=== PATIENT | male | born 1965 | race Caucasian/White ===

== ENCOUNTER → 2020-04-10 12:38 | Outpatient (BNVA) | payer OTHER, SELFPAY | PROVIDERS: PCP Internal Medicine; Referring Provider Internal Medicine; Visit Provider Internal Medicine Cardiovascular Disease | DX: I25.10 Atherosclerotic heart disease of native coronary artery without angina pectoris (principal); I71.2 Thoracic aortic aneurysm, without rupture; I10 Essential (primary) hypertension; E11.9 Type 2 diabetes mellitus without complications; Q23.1 Congenital insufficiency of aortic valve; Z79.4 Long term (current) use of insulin; Z79.899 Other long term (current) drug therapy | CPT/HCPCS: 93005 ==

== ENCOUNTER → 2020-05-08 13:05 | Outpatient (REF) | payer OTHER, SELFPAY ==
--- NOTE | 2020-05-08 13:09 | CA_ITS ---
Transthoracic Echocardiogram Patient (Last, First, Middle): David Joshi A Gender: Male Date of : 1965 Age: 54 Procedure Date: 05/08/2020 Procedure Type: Transthoracic Echocardiogram Location: OP Height: 170.18 cm Weight: 72.58 kg BSA: 1.84 m2 Heart Rate: bpm BP: 120 / 62 mmHg Data Administrator: Referring MD: Juan Yen MD Symptoms: Q23.1 AI I71.2 AO. ANEURYSM WITHOUT RUPTURE Study Quality: Good ECG Rhythm: Sinus Conclusions: - The left ventricular systolic function is normal. The visually estimated ejection fraction is between 65-70%. - There is a bicuspid aortic valve. There is no aortic valve stenosis. There is no aortic valve regurgitation. - There is moderate dilatation of the ascending aorta measuring 4.50 cm. Findings Left Ventricle Normal left ventricular cavity size. There is normal left ventricular wall thickness. The left ventricular systolic function is normal. The visually estimated ejection fraction is between 65-70%. There is no evidence of regional wall motion abnormalities. Diastolic function is normal for age. Right Ventricle Normal right ventricular cavity size and systolic function. Atria The left atrium is normal in size. The right atrium is normal in size. Aortic Valve There is a bicuspid aortic valve. There is no aortic valve stenosis. There is no aortic valve regurgitation. Mitral Valve The mitral valve appears normal. There is trace mitral valve regurgitation. There is no mitral valve stenosis. Pulmonic Valve The pulmonic valve was not well visualized. Tricuspid Valve Normal tricuspid valve structure. There is trace tricuspid valve regurgitation. The pulmonary artery systolic pressure is normal. Great Vessels The aortic arch is normal in size. There is moderate dilatation of the ascending aorta measuring 4.50 cm. Venous The inferior vena cava is normal in size and collapses greater than 50% with inspiration. Pericardium/Pleural There is no evidence of pericardial effusion. Prior Study Comparison Changes noted compared to prior study dated: 12/25/2017. Increase in ascending aortic size. Measurements 2D Linear Measurements RVIDd: 3.01 RVIDd Index: 1.64 IVSd: 0.78 0.6-0.9/0.6-1.0 cm LVIDd: 4.90 3.9-5.3/4.2-5.9 cm LVIDd Index: 2.66 2.4-3.2/2.2-3.1 cm/m2 LVIDs: 2.98 2.0-3.6 cm LVPWd: 0.75 0.7-1.1 cm Ao Root: 3.80 2.1-3.5 cm LA Diam: 3.20 2.7-3.8/3.0-4.0 cm LAIDs Index: 1.74 1.5-2.3 cm/m2 LV Mass: 153.74 67-162/88-224 g LV Mass Index: 83.55 43-95/49-115 g/m2 LVOT Diam: 2.10 3.0+(-)1.3 cm 2D Systolic Function EF 4C: 66.50 >55% EF 2C: 61.70 >55% EF BiP: 64.60 >55% Mitral Valve MV Pk E: 0.84 MV PK A: 0.91 MV Decel Time: 220.00 E/A: 0.90 E'Lateral: 7.72 E'Medial: 7.07 E/E' Med: 11.90 E/E' Lat: 10.90 Aortic Valve AoV Pk Sanjay: 1.79 AoV Mn Sanjay: 1.32 AoV VTI: 0.42 AoV Pk Grad: 13.00 Aov Mn Grad: 8.00 MELQUIADES Cont.VTI: 2.15 LVOT LVOT Pk Sanjay: 1.03 LVOT Mn Sanjay: 0.71 LVOT VTI: 0.26 LVOT Pk Grad: 4.00 LVOT Mn Grad: 2.00 LVOT Diam: 2.10 LVOT Area: 3.46 Diastolic Function MV Pk E: 0.84 MV Pk A: 0.91 E/A: 0.90 E'Medial: 7.07 E/E' Med: 11.90 E' Laterial: 7.72 E/E' Lat: 10.90 Tricuspid Valve TR Pk Sanjay: 2.12 TR Pk Grad: 18.00 RA Press: 3.00 RVSP: 21.00 Great Vessels Aorta Ao Root-2D: 3.80 2.0-3.7 cm Ao Asc: 4.50 2.1-3.4 cm Ao Arch: 3.00 Updated in Other Vendor System with Status of Final Matias Pearson MD electronically signed on 05/09/2020 4:28:26 PM with status of Final
== END ==
LOC: HO.CARD 13:05
PROVIDERS: Visit Provider Internal Medicine Cardiovascular Disease
DX: I25.10 Atherosclerotic heart disease of native coronary artery without angina pectoris (principal); I71.2 Thoracic aortic aneurysm, without rupture; Q23.1 Congenital insufficiency of aortic valve
CPT/HCPCS: 93306

== ENCOUNTER → 2021-04-10 10:14 | Outpatient (BNVA) | payer OTHER, SELFPAY | PROVIDERS: PCP Internal Medicine; Referring Provider Internal Medicine; Visit Provider Internal Medicine Cardiovascular Disease | DX: I25.10 Atherosclerotic heart disease of native coronary artery without angina pectoris (principal); I71.2 Thoracic aortic aneurysm, without rupture | CPT/HCPCS: 93005 ==

== ENCOUNTER → 2021-07-20 08:15 | Outpatient (REF) | payer OTHER, SELFPAY ==
--- NOTE | 2021-07-20 08:17 | CA_ITS ---
Transthoracic Echocardiogram Patient (Last, First, Middle): David Joshi A Gender: Male Date of : 1965 Age: 56 Procedure Date: 07/20/2021 Procedure Type: Transthoracic Echocardiogram Location: OP Height: 172.72 cm Weight: 74.84 kg BSA: 1.88 m2 Heart Rate: bpm BP: 128 / 82 mmHg Ob Nurse: BÁRBARA Referring MD: Juan Yen MD Symptoms: I71.2 - Thoracic aortic aneurysm, without rupture Study Quality: Good ECG Rhythm: Sinus Conclusions: - The left ventricular systolic function is normal. The calculated ejection fraction is 63% by biplane method. - There is a bicuspid aortic valve. There is no aortic valve stenosis. There is no aortic valve regurgitation. - There is mild dilatation of the sinuses of [place] measuring 3.80 cm and moderate dilatation of the ascending aorta measuring 4.50 cm. Findings Left Ventricle Normal left ventricular cavity size. There is normal left ventricular wall thickness. The left ventricular systolic function is normal. The calculated ejection fraction is 63% by biplane method. There is no evidence of regional wall motion abnormalities. Diastolic function is normal for age. Right Ventricle Normal right ventricular cavity size and systolic function. Atria Both atria are normal in size. Aortic Valve There is a bicuspid aortic valve. There is no aortic valve stenosis. There is no aortic valve regurgitation. Mitral Valve The mitral valve appears normal. There is trace mitral valve regurgitation. There is no mitral valve stenosis. Pulmonic Valve The pulmonic valve was not well visualized. Tricuspid Valve Normal tricuspid valve structure. There is trace tricuspid valve regurgitation. The pulmonary artery systolic pressure is normal. Great Vessels The aortic arch is normal in size. There is mild dilatation of the sinuses of [place] measuring 3.80 cm and moderate dilatation of the ascending aorta measuring 4.50 cm. Venous The inferior vena cava is normal in size and collapses greater than 50% with inspiration. Pericardium/Pleural There is no evidence of pericardial effusion. Prior Study Comparison No significant change compared to prior study dated: 05/08/2020. Measurements 2D Linear Measurements IVSd: 0.94 0.6-0.9/0.6-1.0 cm LVIDd: 4.36 3.9-5.3/4.2-5.9 cm LVIDd Index: 2.32 2.4-3.2/2.2-3.1 cm/m2 LVIDs: 2.39 2.0-3.6 cm LVPWd: 0.98 0.7-1.1 cm Ao Root: 3.80 2.1-3.5 cm LA Diam: 2.80 2.7-3.8/3.0-4.0 cm LAIDs Index: 1.49 1.5-2.3 cm/m2 LV Mass: 171.26 67-162/88-224 g LV Mass Index: 91.10 43-95/49-115 g/m2 LVOT Diam: 2.10 3.0+(-)1.3 cm 2D Systolic Function EF 4C: 63.70 >55% EF 2C: 66.60 >55% EF BiP: 63.20 >55% Mitral Valve MV Pk E: 0.88 MV PK A: 0.99 MV Decel Time: 243.00 E/A: 0.90 E'Lateral: 9.46 E'Medial: 7.72 E/E' Med: 11.40 E/E' Lat: 9.30 PHT: 71.00 MVA PHT: 3.10 Decel [place]: 3.61 Aortic Valve AoV Pk Sanjay: 1.94 AoV Mn Sanjay: 1.37 AoV VTI: 0.42 AoV Pk Grad: 15.00 Aov Mn Grad: 8.00 [place] Cont.VTI: 2.01 LVOT LVOT Pk Sanjay: 1.03 LVOT Mn Sanjay: 0.72 LVOT VTI: 0.24 LVOT Pk Grad: 4.00 LVOT Mn Grad: 2.00 LVOT Diam: 2.10 LVOT Area: 3.46 Diastolic Function MV Pk E: 0.88 MV Pk A: 0.99 E/A: 0.90 E'Medial: 7.72 E/E' Med: 11.40 E' Laterial: 9.46 E/E' Lat: 9.30 Right Ventricle TAPSE (mm): 26.90 TVS' Sanjay: 13.80 Tricuspid Valve TR Pk Sanjay: 1.74 TR Pk Grad: 12.00 RA Press: 3.00 RVSP: 15.00 Great Vessels Aorta Ao Root-2D: 3.80 2.0-3.7 cm Sinus of [place]: 3.80 2.0-3.5 cm Ao Asc: 4.50 2.1-3.4 cm Ao Arch: 3.00 Updated in Other Vendor System with Status of Final Matias Pearson MD electronically signed on 07/22/2021 1:22:47 PM with status of Final
== END ==
LOC: HO.CARD 08:15
PROVIDERS: PCP Internal Medicine; Visit Provider Internal Medicine Cardiovascular Disease
DX: I71.2 Thoracic aortic aneurysm, without rupture (principal)
CPT/HCPCS: 93306

== ENCOUNTER 2021-09-14 07:32 | Outpatient (REF) | payer OTHER, SELFPAY ==
[2021-09-14 07:51] LABS: MANUAL DIFF FLAG NO
[2021-09-14 08:08] LABS: Basophils Absolute Auto 0.1 X10*3/uL (0.0-0.2); Basophils Percent Auto 0.9 % (0-2); Eosinophils Absolute Auto 0.6 X10*3/uL (0.0-0.4); Eosinophils Percent Auto 7.9 % (0-4); Hemoglobin 15.5 g/dl (14.0-18.0); Imm Gran Abs Auto 0.04 X10*3/uL (0.00-0.03); Imm Gran Pct Auto 0.5 % (0.0-0.4); Lymphocytes Absolute Auto 1.8 X10*3/uL (1.2-4.9); Lymphocytes Percent Auto 22.8 % (20-40); Mean Corpuscular HGB Conc 33.7 g/dl (31.0-36.0); Mean Corpuscular Hemoglobin 29.6 pg (27.0-33.0); Mean Corpuscular Volume 87.8 fL (80.0-98.0); Mean Platelet Volume 10.2 fL (9.4-12.4); Monocytes Absolute Auto 0.6 X10*3/uL (0.1-1.2); Monocytes Percent Auto 7.8 % (2-11); Neutrophils Absolute Auto 4.6 x10*3/uL (2.0-8.3); Neutrophils Percent Auto 60.1 % (45-73); Platelet Count 267 X10*3/uL (160-400); Red Blood Count 5.24 X10*6/uL (4.60-5.80); Red Cell Distribution Width 12.5 % (11.0-16.0); White Blood Count 7.7 X10*3/uL (4.8-10.8)
[2021-09-14 08:21] LABS: Estimated Average Glucose 177 mg/dL; Hemoglobin A1c % 7.8 %
[2021-09-14 08:43] LABS: Alanine Aminotransferase 27 U/L (0-40); Albumin Level 4.1 g/dL (3.5-5.0); Alkaline Phosphatase 70 U/L (39-117); Anion Gap 12 (12-20); Aspartate Amino Transferase 24 U/L (5-37); Bilirubin Total 0.5 mg/dL (0.0-1.0); Blood Urea Nitrogen 21 mg/dL (9-16); Calcium 9.7 mg/dL (8.4-10.2); Carbon Dioxide 30 mmol/L (22-29); Chloride 102 mmol/L (96-108); Cholesterol 226 mg/dL; Estimated Glomerular Filt Rate 54; Glucose Fasting 207 mg/dL (60-99); HDL Cholesterol 53 mg/dL; LDL Cholesterol Calculated 141 mg/dl; Potassium 5.5 mmol/L (3.3-5.1); Sodium 138 mmol/L (135-145); Total Protein 6.5 g/dL (6.5-8.0); Triglycerides 160 mg/dL
[2021-09-14 08:59] LABS: TSH reflex Free T4 3.65 uIU/mL (0.32-4.0); Vitamin D 25-OH Total 25.9 ng/mL (>30)
[2021-09-14 09:31] LABS: Appearance Urine CLEAR; Color Urine YELLOW; Glucose Urine UA NEG (NEG); Leukocyte Esterase Urine NEG (NEG); Nitrite Urine NEG (NEG); Specific Gravity - Urine 1.025 (1.005-1.025); Urine Blood NEG (NEG); Urine Ketones NEG (NEG); Urine Protein NEG (NEG-TRACE)
[2021-09-14 09:36] LABS: Creatinine Urine 183.12 mg/dL; Microalbum/Creatinine Ratio Ur 4.3 ug/mg cr
[2021-09-17 14:26] LABS: CRP High Sensitivity 2.3 mg/L
== END 2021-09-14 07:33 | disposition home or self-care (01) ==
LOC: HO.LAB 07:32
PROVIDERS: Internal Medicine Cardiovascular Disease; PCP Internal Medicine; Visit Provider Internal Medicine
DX: E78.00 Pure hypercholesterolemia, unspecified (principal); E11.9 Type 2 diabetes mellitus without complications; I10 Essential (primary) hypertension; I25.10 Atherosclerotic heart disease of native coronary artery without angina pectoris; E78.5 Hyperlipidemia, unspecified; E55.9 Vitamin D deficiency, unspecified
CPT/HCPCS: 36415; 80053; 80061; 81003; 82043; 82306; 83036; 84443; 85025; 86141

== ENCOUNTER → 2022-04-16 09:49 | Outpatient (BNVA) | payer OTHER, SELFPAY | PROVIDERS: PCP Internal Medicine; Referring Provider Internal Medicine; Visit Provider Internal Medicine Cardiovascular Disease | DX: I71.20 Thoracic aortic aneurysm, without rupture, unspecified (principal); I25.10 Atherosclerotic heart disease of native coronary artery without angina pectoris | CPT/HCPCS: 93005 ==

== ENCOUNTER 2022-05-21 06:22 | Outpatient (REF) | payer OTHER, SELFPAY ==
[2022-05-21 07:34] LABS: Estimated Average Glucose 192 mg/dL; Hemoglobin A1c % 8.3 %
[2022-05-21 07:56] LABS: Cholesterol 200 mg/dL; HDL Cholesterol 67 mg/dL; LDL Cholesterol Calculated 108 mg/dl; Triglycerides 127 mg/dL
[2022-05-21 08:01] LABS: Alanine Aminotransferase 34 U/L (0-40); Albumin Level 4.2 g/dL (3.5-5.0); Alkaline Phosphatase 89 U/L (39-117); Anion Gap 15 (12-20); Aspartate Amino Transferase 24 U/L (5-37); Bilirubin Total 0.7 mg/dL (0.0-1.0); Blood Urea Nitrogen 23 mg/dL (9-16); Calcium 9.3 mg/dL (8.4-10.2); Carbon Dioxide 27 mmol/L (22-29); Chloride 101 mmol/L (96-108); Cholesterol 203 mg/dL; Estimated Glomerular Filt Rate 53; HDL Cholesterol 67 mg/dL; LDL Cholesterol Calculated 111 mg/dl; Potassium 5.2 mmol/L (3.3-5.1); Sodium 138 mmol/L (135-145); Total Protein 6.5 g/dL (6.5-8.0); Triglycerides 129 mg/dL
[2022-05-21 08:08] LABS: Glucose Fasting 419 mg/dL (60-99)
[2022-05-21 09:15] LABS: Appearance Urine Clear; Color Urine Yellow; Glucose Urine UA >=1000 mg/dL (Negative); Leukocyte Esterase Urine Negative (Negative); Nitrite Urine Negative (Negative); PH 5.5 (5.0-9.0); Specific Gravity - Urine >= 1.030 (1.005-1.025); UMIC TRIGGER UACC YES; Urine Blood Negative (Negative); Urine Ketones Negative (Negative); Urine Protein Negative (Neg-Trace)
[2022-05-21 09:22] LABS: Bacteria Urine None Seen (None Seen); Hyaline Casts Urine 0-2 /LPF (0-2); RBC Urine 0-2 /HPF (0-2); Squamous Epithelial Cell Urine 0-2 /HPF (0-2); WBC Urine 0-5 /HPF (0-5)
[2022-05-21 09:38] LABS: Creatinine Urine 87.42 mg/dL; Microalbumin Urine < 5.0 mg/L
== END 2022-05-21 06:23 | disposition home or self-care (01) ==
LOC: HO.LAB 06:22
PROVIDERS: Absent Provider Internal Medicine Cardiovascular Disease; PCP Internal Medicine; Visit Provider Internal Medicine
DX: E78.00 Pure hypercholesterolemia, unspecified (principal); E11.9 Type 2 diabetes mellitus without complications; E78.5 Hyperlipidemia, unspecified; E87.5 Hyperkalemia
CPT/HCPCS: 36415; 80048; 80053; 80061; 81001; 82043; 83036

== ENCOUNTER → 2022-05-22 12:41 | Outpatient (REF) | payer OTHER, SELFPAY ==
--- NOTE | 2022-05-22 12:58 | CA_ITS ---
Transthoracic Echocardiogram Patient (Last, First, Middle): David Joshi A Gender: Male Date of : 1965 Age: 56 Procedure Date: 05/22/2022 Procedure Type: Transthoracic Echocardiogram Location: OP Height: 172.72 cm Weight: 74.84 kg BSA: 1.88 m2 Heart Rate: bpm BP: 138 / 68 mmHg Certified Medical Assistant: TO Referring MD: Juan Yen MD Production Material Coordinator: Juan Yen MD Symptoms: I71.2 - Thoracic aortic aneurysm, without rupture Study Quality: Fair ECG Rhythm: Sinus Conclusions: - 1. Normal LV systolic function with grade 1 diastolic dysfunction 2. Bicuspid aortic valve without any secondary abnormality 3. Moderately dilated ascending aorta at 4.5 cm 4. Normal RV systolic pressure 5. No gross pericardial effusion Findings Left Ventricle Normal left ventricular size, thickness, and systolic function. The visually estimated ejection fraction is between 60-65%. Spectral Doppler is indicative of an impaired relaxation filling pattern. E/E prime ratio is <8, consistent with normal filling pressures. Evidence suggests grade I (mild) diastolic dysfunction. Right Ventricle Normal right ventricular cavity size and systolic function. Atria Both atria are normal in size. Interatrial shunt cannot be excluded. Aortic Valve There is a bicuspid aortic valve. There is mild thickening of the aortic valve. There is no aortic valve stenosis. There is no aortic valve regurgitation. Mitral Valve Normal mitral valve structure and function. There is trace mitral valve regurgitation. There is no mitral valve stenosis. Pulmonic Valve The pulmonic valve was not well visualized. Tricuspid Valve Likely normal tricuspid valve structure and function. There is trace tricuspid valve regurgitation. Normal right atrial pressure. There is no evidence of pulmonary hypertension. Great Vessels The pulmonary artery was not well visualized. There is moderate dilatation of the ascending aorta measuring 4.50 cm. Venous The inferior vena cava is normal in size and collapses greater than 50% with inspiration. Pericardium/Pleural There is no evidence of pericardial effusion. Prior Study Comparison No significant change compared to prior study dated: 07/20/2021. Measurements 2D Linear Measurements IVSd: 1.08 0.6-0.9/0.6-1.0 cm LVIDd: 4.16 3.9-5.3/4.2-5.9 cm LVIDd Index: 2.21 2.4-3.2/2.2-3.1 cm/m2 LVIDs: 2.48 2.0-3.6 cm LVPWd: 0.97 0.7-1.1 cm LA Diam: 2.70 2.7-3.8/3.0-4.0 cm LAIDs Index: 1.44 1.5-2.3 cm/m2 LV Mass: 173.71 67-162/88-224 g LV Mass Index: 92.40 43-95/49-115 g/m2 LVOT Diam: 2.20 3.0+(-)1.3 cm 2D Systolic Function EF 4C: 60.70 >55% EF 2C: 56.70 >55% Mitral Valve MV Pk E: 0.71 MV PK A: 0.88 MV Decel Time: 316.00 E/A: 0.80 E'Lateral: 10.40 E'Medial: 6.42 E/E' Med: 11.10 E/E' Lat: 6.80 PHT: 92.00 MVA PHT: 2.39 Decel [place]: 2.25 Aortic Valve AoV Pk Sanjay: 1.78 AoV Mn Sanjay: 1.22 AoV VTI: 0.31 AoV Pk Grad: 13.00 Aov Mn Grad: 7.00 MELQUIADES Cont.VTI: 2.45 LVOT LVOT Pk Sanjay: 1.05 LVOT Mn Sanjay: 0.74 LVOT VTI: 0.20 LVOT Pk Grad: 4.00 LVOT Mn Grad: 2.00 LVOT Diam: 2.20 LVOT Area: 3.80 Diastolic Function MV Pk E: 0.71 MV Pk A: 0.88 E/A: 0.80 E'Medial: 6.42 E/E' Med: 11.10 E' Laterial: 10.40 E/E' Lat: 6.80 Right Ventricle TAPSE (mm): 22.60 TVS' Sanjay: 12.70 Tricuspid Valve TR Pk Sanjay: 1.78 TR Pk Grad: 13.00 RA Press: 3.00 RVSP: 16.00 Great Vessels Aorta Sinus of Vals[place]: 4.03 2.0-3.5 cm Ao Asc: 4.50 2.1-3.4 cm Ao Arch: 3.30 Updated in Other Vendor System with Status of Final Juan Yen MD electronically signed on 05/23/2022 3:20:21 PM with status of Final
== END ==
LOC: HO.CARD 12:41
PROVIDERS: PCP Internal Medicine; Visit Provider Internal Medicine Cardiovascular Disease
DX: I71.20 Thoracic aortic aneurysm, without rupture, unspecified (principal); I25.10 Atherosclerotic heart disease of native coronary artery without angina pectoris
CPT/HCPCS: 93306

== ENCOUNTER 2023-02-18 15:21 | Outpatient (AMB) | payer OTHER, SELFPAY ==
[2023-02-18 15:22] VITALS: BP 140/80; PULSE 67; O2SAT 98; BMI 24.6
--- NOTE | 2023-02-18 15:22 | A.OFFPC_ITS ---
Vital Signs 02/18/23 15:22 Height 5 ft 7 in Weight 157 lb 4 oz BMI 24.6 BP 140/80 H Blood Pressure Location Lt brachial Position Sitting Pulse 67 Pulse Source Pulse Oximeter Pulse Oximetry (%) 98 Oxygen Delivery Method Room Air Intake Visit Reasons: DM Ground Wirer Required: No Accompanied by: Self / Same As Patient Allergies atorvastatin [Lipitor] Allergy (Unknown, Verified 02/18/23 16:11) joint px Medication List - Last Reconciled 02/18/23 by James Scott MD aspirin (Adult Low Dose Aspirin) 81 mg PO DAILY atorvastatin 80 mg PO DAILY 90 days blood sugar diagnostic ([employer] Ultra Test strips) CHECK BLOOD GLUCOSE FOUR TIMES DAILY Humalog KwikPen Insulin (insulin lispro) 12 - 20 units (0.12 - 0.2 mL) subcut TID NS insulin glargine (Lantus U-100 Insulin) 27 units (0.27 mL) subcut BEDTIME 30 days lisinopril 10 mg PO DAILY pen needle, diabetic (BD Ultra-Fine Original Pen Needle) 1 ea miscellaneous TID pen needle, diabetic (BD Ultra-Fine Original Pen Needle) use to inject insulin 3 x daily Tobacco use date assessed: 02/18/23 Dental Screening Dental Screen Date: 02/18/23 Did you have a dental visit in the last 12 months?: Yes Did you have a dental problem in the last 6 months where you did not have access to dental care?: No Was dental information given to patient?: Patient has dentist [facility]IN[facility] HPI Details Patient comes in today for his follow-up visit States that he currently feels okay Has lost a lot of weight since his last visit due to a very complicated course with his teeth over the past few months Recalls that he had a lot of issues following a wisdom tooth extraction He somehow had a fracture over the right corner of his lower jaw following his wisdom tooth extraction and had to have his jaw wired shut about 10 weeks ago States that he could not eat properly for a few weeks as a result and had to stop taking all of his meds for a while, including his insulin and his blood sugar control is now all messed up States that he just recently got back on all of his previous meds and is just starting to eat normally He denies any headaches or dizziness Denies any chest pains, no shortness of breath No nausea / vomiting, no abdominal pain No change in bowel habits noted PFSH Medical History Pure hypercholesterolemia Benign essential hypertension Normal colonoscopy (~10/12/15) Blurred vision, bilateral CAD (coronary artery disease) Thoracic aortic aneurysm Bicuspid aortic valve HTN (hypertension) Hyperlipidemia Diabetes mellitus Surgical History (Updated 02/18/23 @ 16:19 by James Scott MD) Stented coronary artery Hx of cardiac cath (~2012) Family History Father Hypertension Mother Hypertension Diabetes Social History Housing: House Alcohol intake: current Alcohol intake frequency: holidays/special occasions only Patient Tobacco Use Status: Never used Tobacco e-Cigarette/Vaping Use: Never Used Second Hand Smoke Exposure: Yes service: No Current occupational status: employed Current occupational exposures/hazards: No Cognitive needs: No Hearing needs: No Vision needs: No Questionnaire PHQ-9 Over the last 2 weeks, how often have you been bothered by any of the following problems? 1. Little interest or pleasure in doing things: not at all 2. Feeling down, depressed, or hopeless: not at all 3. Trouble falling or staying asleep, or sleeping too much: not at all 4. Feeling tired or having little energy: not at all 5. Poor appetite or overeating: not at all 6. Feeling bad about yourself - or that you are a failure or have let yourself or your family down: not at all 7. Trouble concentrating on things, such as reading the newspaper or watching television: not at all 8. Moving or speaking so slowly that other people could have noticed. Or the opposite - being so fidgety or restless that you have been moving around a lot more than usual: not at all 9. Thoughts that you would be better off or of hurting yourself in some way: not at all Total score: 0 Depression Screening Interpretation: Negative 20471 - PHQ-9 Billing: Yes Source: Developed by Drs. Beau Mccarthy, Molly Lang, Julio Marquis and colleagues, with an educational nikki from [employer]. Thrive Questionnaire Date Thrive assessed: 02/18/23 I am a: Patient What is your living situation today?: I have a steady place to live Within the past 12 months, did the food you bought not last and you didn't have the money to get more?: Never true Within the past 12 months, did you worry whether your food would run out before you got money to buy more?: Never true Do you have trouble paying for medicines?: No Do you have trouble getting transportation to medical appointments?: No Do you have trouble paying your heating and electricity bill?: No Do you have trouble taking care of your child, family member or friend?: No Do you have trouble with day-to-day activities such as bathing, preparing meals, shopping, managing finances, etc.?: No Are you currently unemployed and looking for a job?: No Are you interested in more education?: No Please select the resources that you would like help with: None Currently or been in a relationship where the following occur: no concerns reported AUDIT C Alcohol Use Questionnaire (AUDIT-C) 1. How often do you have a drink containing alcohol?: Monthly or less 2. How many drinks containing alcohol do you have on a typical day when you are drinking?: 1 or 2 3. How often do you have six or more drinks on one occasion?: Never Total Score: 1 Score Reviewed/Action Taken: Yes MILDRED-7 AMB Questionnaire MILDRED-7 Date MILDRED - 7 assessed: 02/18/23 Feeling nervous, anxious, or on edge: 0 = Not at all Not being able to stop or control worryin = Not at all Worrying too much about different things: 0 = Not at all Trouble relaxin = Not at all Being so restless that it is hard to sit still: 0 = Not at all Becoming easily annoyed or irritable: 0 = Not at all Feeling afraid as if something awful might happen: 0 = Not at all Total MILDRED-7 score (0-4 normal; 5-9 mild; 10-14 moderate; 15-21 severe): 0 Source: Developed by Drs. Beau Mccarthy, Molly Lang, Julio Marquis and colleagues, with an educational nikki from [employer]. Review of Systems Const Denies fatigue, Denies fever(s), Denies headache(s) and Reports weight loss ENT Denies dysphagia, Denies dizziness, Denies otalgia, Denies headache(s), Denies neck pain, Denies odynophagia and Denies sore throat Card Denies chest pain, Denies palpitations and Denies dyspnea Resp Denies cough and Denies dyspnea GI Denies abdominal pain, Denies constipation, Denies dysphagia, Denies heartburn, Denies diarrhea, Denies nausea, Denies odynophagia and Denies vomiting Denies dysuria, Denies nocturia and Denies urinary frequency Musc Denies back pain and Denies neck pain Neuro Denies dizziness and Denies headache(s) Endo Denies fatigue and Denies palpitations Physical exam (Primary Care) Vital Signs: Last Vital Signs Pulse 67 02/18/23 15:22 BP 140/80 H 02/18/23 15:22 Pulse Ox 98 02/18/23 15:22 Oxygen Delivery Method Room Air 02/18/23 15:22 BMI result Body Mass Index 24.6 Tobacco/Smoking Status: Tobacco use Status Tobacco use date assessed 02/18/23 02/18/23 15:30 Patient Tobacco Use Status Never used Tobacco 02/18/23 15:30 e-Cigarette/Vaping Use Never Used 02/18/23 15:30 PHQ-9: PHQ-9 Score PHQ-9: Total score 0 02/18/23 16:25 Depression Screening Interpretation: Negative Thrive Assessment: Date of Thrive Assessment Date Thrive assessed 02/18/23 02/18/23 15:30 Currently or been in a relationship where the following occur: no concerns reported Const General: no acute distress and alert HENMT Ears: TM's normal bilaterally and EAC's normal Throat: Yes posterior oropharynx normal and Yes tonsils normal (no TP congestion noted) Neck Neck: Yes no lymphadenopathy and Yes supple Resp Auscultation: clear to auscultation bilaterally, no rales and no wheezes Cardio Rate: regular rate Rhythm: regular rhythm Heart sounds: no murmurs GI Palpation (GI): Soft to palpation and nontender Auscultation: normal bowel sounds Extrem General: Yes no clubbing, cyanosis or edema Results AMB Hemoglobin A1c AMB Hemoglobin A1c 8.5 % Last Edit by Sherry Torres on 02/18/23 16:25 Results Reviewed Results Reviewed: Laboratory Last Values Hgb A1c (Clinic) 8.5 % (4.0-6.0) H 02/18/23 16:19 Assessment and Plan Assessment & Plan (1) Diabetes mellitus: Code(s): E11.9 - Type 2 diabetes mellitus without complications Qualifiers: Diabetes mellitus complication status: with hyperglycemia Diabetes mellitus director long term care insulin use: with director long term care use Diabetes mellitus type: type 2 Qualified Code(s): E11.65 - Type 2 diabetes mellitus with hyperglycemia; Z79.4 - care home (current) use of insulin Plan: In-office HgbA1c done today is at 8.5% (was at 8.2% a few months ago) - goal is < 7.0% Reinforced diabetic diet Was on Lantus 17 to 27 units once a day and was instructed to consider going up to 30 units QD on this but as he just recently got back on his medications, instructed to continue on his current dose at this time Continue Humalog up to 12 units 3 times a day with meals per sliding scale (2) CAD (coronary artery disease): Code(s): I25.10 - Atherosclerotic heart disease of [place] coronary artery without angina pectoris Qualifiers: Associated angina: without angina Coronary Disease-Associated Artery/Lesion type: [place] artery [place] vs. transplanted heart: [place] heart Qualified Code(s): I25.10 - Atherosclerotic heart disease of [place] coronary artery without angina pectoris Plan: Is currently asymptomatic Continue Aspirin 81 mg QD Follow up with cardiology as scheduled (3) Pure hypercholesterolemia: Code(s): E78.00 - Pure hypercholesterolemia, unspecified Plan: Is still not able to get his follow up labs done; his last labs were done back in August 2021 Reinforced low cholesterol diet Continue his Atorvastatin 40 mg today; patient takes it together with Co-Q 10 tablets to help minimize/counteract his myalgias from the Rx Will recheck his fasting lipids and labs in 4 months for follow-up - will just have patient use his current orders (updated) for his next lab draw (4) Benign essential hypertension: Code(s): I10 - Essential (primary) hypertension Plan: Reinforced low sodium diet - goal is systolic BP of 120 mm or less Continue Lisinopril 10 mg QD and Metoprolol ER 25 mg QD (5) Thoracic aortic aneurysm: Code(s): I71.2 - Thoracic aortic aneurysm, without rupture Qualifiers: Presence of rupture: without rupture Qualified Code(s): I71.2 - Thoracic aortic aneurysm, without rupture Plan: Most recent echocardiogram done on 05/22/2022 showed no significant change in the size of his aneurysm - normal LV systolic function with grade 1 diastolic dysfunction; (+) bicuspid aortic valve without any secondary abnormality, moderately dilated ascending aorta at 4.5 cm, normal RV systolic pressure and no gross pericardial effusion ? Previous echocardiogram in April 2020 showed moderate dilatation of the ascending aorta measuring 4.50 cm Will need to continue close monitoring of his AA (6) Bicuspid aortic valve: Code(s): Q23.1 - Congenital insufficiency of aortic valve Plan: Echocardiogram done in April 2022 showed (+) bicuspid aortic valve with no aortic valve stenosis or regurgitation.? Left ventricular systolic function is normal.? The visually estimated ejection fraction is between 65-70% - findings are similar/unchanged from previous echo in 04/2020 Will continue to monitor closely Plan Follow up in 4 months Orders: Orders AMB Hemoglobin A1c 02/18/23 Z13.9 - Encounter for screening, unspecified Medications: Refilled Humalog KwikPen Insulin (insulin lispro) 12 - 20 units (0.12 - 0.2 mL) subcut TID 15 mL 2RF NS insulin glargine (Lantus U-100 Insulin) 27 units (0.27 mL) subcut BEDTIME 10 mL 5RF 30 days E11.9 - Type 2 diabetes mellitus without complications lisinopril 10 mg PO DAILY 90 tabs 1RF Coding Level of Care Code Est Pt Level 4 (11414) Diagnoses Type 2 diabetes mellitus with hyperglycemia, with long-term current use of insulin E11.65; Z79.4 Diabetes mellitus complication status: with hyperglycemia Diabetes mellitus fdc insulin use: with fdc use Diabetes mellitus type: type 2 Coronary artery disease involving [place] coronary artery of [place] heart without angina pectoris I25.10 Associated angina: without angina Coronary Disease-Associated Artery/Lesion type: [place] artery [place] vs. transplanted heart: [place] heart Pure hypercholesterolemia E78.00 Benign essential hypertension I10 Thoracic aortic aneurysm without rupture I71.2 Presence of rupture: without rupture Bicuspid aortic valve Q23.1
== END 2023-02-18 16:28 | disposition home or self-care (01) ==
PROVIDERS: PCP Internal Medicine; Visit Provider Internal Medicine
DX: E11.9 Type 2 diabetes mellitus without complications (principal)
CPT/HCPCS: 83036; 99214

== ENCOUNTER 2023-04-10 10:54 | Outpatient (AMB) | payer OTHER, SELFPAY ==
[2023-04-10 10:56] VITALS: BP 124/82; PULSE 61; BMI 26.2
--- NOTE | 2023-04-10 10:56 | A.OFFVIS_ITS ---
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 Required: No Allergies atorvastatin [Lipitor] Allergy (Unknown, Verified 02/18/23 16:11) joint px Medication List - Last Reconciled 04/10/23 by Juan Yen MD aspirin (Adult Low Dose Aspirin) 81 mg PO DAILY blood sugar diagnostic (Accel Diagnosticsuch Ultra Test strips) CHECK BLOOD GLUCOSE FOUR TIMES DAILY Humalog KwikPen Insulin (insulin lispro) 12 - 20 units (0.12 - 0.2 mL) subcut TID NS insulin glargine (Lantus U-100 Insulin) 27 units (0.27 mL) subcut BEDTIME 30 days lisinopril 10 mg PO DAILY pen needle, diabetic (BD Ultra-Fine Original Pen Needle) 1 ea miscellaneous TID pen needle, diabetic (BD Ultra-Fine Original Pen Needle) use to inject insulin 3 x daily HPI HPI Comments History of Present Illness Details David comes for follow-up. Denies any significant cardiac complains at current time. He is currently off statin therapy as he said there was a period time that had is jaw that had to be wired due to mandibular fracture. He had lost lot of weight but he has regained that. However he remains off statin therapy. Denies exertional chest pain. Blood pressures been well controlled. Denies any prolonged palpitation irregular heartbeat. Denies any other heart failure symptoms. [facility] Medical History Pure hypercholesterolemia Benign essential hypertension Normal colonoscopy (~10/12/15) Blurred vision, bilateral CAD (coronary artery disease) Thoracic aortic aneurysm Bicuspid aortic valve HTN (hypertension) Hyperlipidemia Diabetes mellitus Surgical History (Updated 02/18/23 @ 16:19 by James Scott MD) Stented coronary artery Hx of cardiac cath (~2012) Family History Father Hypertension Mother Hypertension Diabetes Social History Housing: House Alcohol intake: current Alcohol intake frequency: holidays/special occasions only Patient Tobacco Use Status: Never used Tobacco e-Cigarette/Vaping Use: Never Used Second Hand Smoke Exposure: Yes service: No Current occupational status: employed Current occupational exposures/hazards: No Cognitive needs: No Hearing needs: No Vision needs: No Review of Systems Const Denies chills, Denies fatigue, Denies fever(s), Denies frequent falls, Denies weakness, Denies weight gain and Denies weight loss ENT Denies dizziness Card Denies chest pain, Denies leg edema, Denies lightheadedness, Denies palpitations, Denies dyspnea, Denies dyspnea on exertion, Denies orthopnea and Denies other (loss of consciousness) Resp Denies cough, Denies dyspnea and Denies dyspnea on exertion GI Denies hematochezia and Denies change in stool character Musc Denies abnormal gait, Denies muscle weakness, Denies numbness, Denies radiating pain into limb and Denies tingling Neuro Denies abnormal gait, Denies dizziness, Denies frequent falls, Denies numbness, Denies tingling and Denies weakness Endo Denies fatigue and Denies palpitations Physical Exam Vital Signs: Last Vital Signs Pulse 61 04/10/23 10:56 BP 124/82 04/10/23 10:56 BMI result Body Mass Index 26.2 Const General: cooperative, healthy appearing, no acute distress, alert and awake Nutritional Appearance: overweight Orientation/consciousness: patient oriented x3 Limitations: no limitations HEENT Head: Yes normal to inspection, Yes normocephalic and Yes atraumatic Eyes General: appearance normal, both eyes and all related structures Neck Neck: Yes normal visual inspection, Yes trachea midline, Yes supple and Yes no JVD Carotids: other ( No carotid bruit) Chest Chest palpation & inspection: normal inspection of the chest Resp Effort & Inspection: normal respiratory effort Auscultation: clear to auscultation bilaterally Cardio Jugular venous distension: no JVD Palpation: normal PMI Rate: regular rate Rhythm: regular rhythm Heart sounds: S1 normal heart sound present and S2 normal heart sound present Peripheral pulses: Peripheral pulses 2+ throughout GI Inspection: Yes normal to inspection Skin General skin exam: no rashes or lesions noted and no ecchymosis Neuro General: patient oriented x3 and no focal motor deficits Extrem General: Yes no clubbing, cyanosis or edema Psych Appearance: grossly normal Office Procedures EKG Details: EKG shows normal sinus rhythm with normal EKG 73642-[id number], Complete Assessment & Plan Assessment & Plan (1) CAD (coronary artery disease): Code(s): I25.10 - Atherosclerotic heart disease of [place] coronary artery without angina pectoris Qualifiers: Coronary Disease-Associated Artery/Lesion type: [place] artery [place] vs. transplanted heart: [place] heart Associated angina: without angina Qualified Code(s): I25.10 - Atherosclerotic heart disease of [place] coronary artery without angina pectoris Plan: CAD with prior stenting with no recurrent cardiac symptoms at current point in time. Stable coronary artery disease. Continue aggressive medical therapy. Importance of statin therapy was discussed. Advised to reinitiate atorvastatin 80 mg a day and follow-up lipid panel and 2 months time. Target goal LDL closer to 60 mg/dL. Blood pressure is currently well optimized advised to monitor blood pressure at home maintain a log. Goal blood pressure less than 130/84. Advised to maintain activity level as tolerated. (2) Thoracic aortic aneurysm: Code(s): I71.2 - Thoracic aortic aneurysm, without rupture Qualifiers: Presence of rupture: without rupture Qualified Code(s): I71.2 - Thoracic aortic aneurysm, without rupture Plan: Moderate thoracic aortic enlargement related to bicuspid aortic valve. Follow- up echocardiogram in a month's time. Management of thoracic aortic aneurysm was discussed in details. Advised to avoid sudden strenuous isometric exercise. Advised to seek emergency care for acute aortic syndrome symptoms. Continue aggressive blood pressure control which is currently well optimized. Cardiothoracic surgery once ascending aortic size is at 5 cm. Will follow up in the clinic in 1 year's time, sooner p.r.n.. Thank you for allowing me to partake in his care Orders: Orders Lipid Panel 2 Months I25.10 - Atherosclerotic heart disease of [place] coronary artery without angina pectoris CA echo transthoracic complete 4 Weeks I71.2 - Thoracic aortic aneurysm, without rupture Coding Level of Care Code Est Pt Level 4 (72323) Diagnoses Coronary artery disease involving [place] coronary artery of [place] heart without angina pectoris I25.10 Coronary Disease-Associated Artery/Lesion type: [place] artery [place] vs. transplanted heart: [place] heart Associated angina: without angina Thoracic aortic aneurysm without rupture I71.2 Presence of rupture: without rupture CPT Codes EKG - CPT: 78089-[id number], Complete ([id number])
== END 2023-04-10 11:24 | disposition home or self-care (01) ==
PROVIDERS: Visit Provider Internal Medicine Cardiovascular Disease
DX: I25.10 Atherosclerotic heart disease of native coronary artery without angina pectoris (principal); I71.20 Thoracic aortic aneurysm, without rupture, unspecified
CPT/HCPCS: 93010; 99214

== ENCOUNTER → 2023-04-10 10:54 | Outpatient (BNVA) | payer OTHER, SELFPAY | PROVIDERS: Visit Provider Internal Medicine Cardiovascular Disease | DX: I71.20 Thoracic aortic aneurysm, without rupture, unspecified (principal); I25.10 Atherosclerotic heart disease of native coronary artery without angina pectoris | CPT/HCPCS: 93005 ==

== ENCOUNTER → 2023-05-13 15:32 | Outpatient (REF) | payer OTHER, SELFPAY ==
--- NOTE | 2023-05-13 15:35 | CA_ITS ---
Transthoracic Echocardiogram Patient (Last, First, Middle): David Joshi A Gender: Male Date of : 1965 Age: 57 Procedure Date: 05/13/2023 Procedure Type: Transthoracic Echocardiogram Location: OP Height: 172.72 cm Weight: 74.84 kg BSA: 1.88 m2 Heart Rate: bpm BP: 118 / 60 mmHg Vice President Of Operations: Referring MD: Juan Yen MD Symptoms: I71.2 - Thoracic aortic aneurysm, without rupture Study Quality: Adequate ECG Rhythm: Sinus Conclusions: - 1. Normal LV ejection fraction of 60- 65% with grade 1 diastolic dysfunction 2. Bicuspid aortic valve without significant Doppler abnormality 3. Moderately dilated ascending aorta 4.6 cm 4. Normal RV systolic pressure 5. No gross pericardial effusion Findings Left Ventricle Normal left ventricular size, thickness, and systolic function. The visually estimated ejection fraction is between 60-65%. Spectral Doppler is indicative of an impaired relaxation filling pattern. E/E prime ratio is <8, consistent with normal filling pressures. Evidence suggests grade I (mild) diastolic dysfunction. Right Ventricle Normal right ventricular cavity size and systolic function. Atria Both atria are normal in size. Aortic Valve There is a bicuspid aortic valve. There is mild calcification of the aortic valve. There is moderate thickening of the aortic valve. There is no aortic valve stenosis. There is no aortic valve regurgitation. Mitral Valve Normal mitral valve structure and function. There is trace mitral valve regurgitation. There is no mitral valve stenosis. Pulmonic Valve The pulmonic valve is likely normal. There is trace pulmonic valve regurgitation. Tricuspid Valve Normal tricuspid valve structure. There is trace tricuspid valve regurgitation. The right ventricular systolic pressure is normal. The right ventricular systolic pressure is 21 mmHg. Normal right atrial pressure. There is no evidence of pulmonary hypertension. Great Vessels The pulmonary artery was not well visualized. There is moderate dilatation of the ascending aorta measuring 4.60 cm. Venous The inferior vena cava is normal in size and collapses greater than 50% with inspiration. Pericardium/Pleural There is no evidence of pericardial effusion. Prior Study Comparison No significant change compared to prior study dated: 05/22/2022. Measurements 2D Linear Measurements IVSd: 1.17 0.6-0.9/0.6-1.0 cm LVIDd: 3.75 3.9-5.3/4.2-5.9 cm LVIDd Index: 1.99 2.4-3.2/2.2-3.1 cm/m2 LVIDs: 2.46 2.0-3.6 cm LVPWd: 1.05 0.7-1.1 cm Ao Root: 3.90 2.1-3.5 cm LA Diam: 2.90 2.7-3.8/3.0-4.0 cm LAIDs Index: 1.54 1.5-2.3 cm/m2 LV Mass: 166.44 67-162/88-224 g LV Mass Index: 88.53 43-95/49-115 g/m2 LVOT Diam: 2.00 3.0+(-)1.3 cm Mitral Valve MV Pk E: 0.61 MV PK A: 1.10 MV Decel Time: 279.00 E/A: 0.60 E'Lateral: 6.85 E'Medial: 5.44 E/E' Med: 11.30 E/E' Lat: 8.90 PHT: 82.00 MVA PHT: 2.68 Decel [place]: 2.20 Aortic Valve AoV Pk Sanjay: 1.62 AoV Mn Sanjay: 1.08 AoV VTI: 0.39 AoV Pk Grad: 10.00 Aov Mn Grad: 6.00 [place] Cont.VTI: 1.68 LVOT LVOT Pk Sanjay: 0.85 LVOT Mn Sanjay: 0.53 LVOT VTI: 0.21 LVOT Pk Grad: 3.00 LVOT Mn Grad: 1.00 LVOT Diam: 2.00 LVOT Area: 3.14 Diastolic Function MV Pk E: 0.61 MV Pk A: 1.10 E/A: 0.60 E'Medial: 5.44 E/E' Med: 11.30 E' Laterial: 6.85 E/E' Lat: 8.90 Right Ventricle TAPSE (mm): 24.00 TVS' Sanjay: 12.00 Tricuspid Valve TR Pk Sanjay: 2.10 TR Pk Grad: 18.00 RA Press: 3.00 RVSP: 21.00 Great Vessels Aorta Ao Root-2D: 3.90 2.0-3.7 cm Ao Asc: 4.60 2.1-3.4 cm Pulmonary Valve PV Pk Sanjay: 0.73 Peak PV Grad: 2.00 Updated in Other Vendor System with Status of Final Juan Yen MD electronically signed on 05/14/2023 5:35:54 PM with status of Final
== END ==
LOC: HO.CARD 15:32
PROVIDERS: PCP Internal Medicine; Visit Provider Internal Medicine Cardiovascular Disease
DX: I71.20 Thoracic aortic aneurysm, without rupture, unspecified (principal)
CPT/HCPCS: 93306

== ENCOUNTER → 2023-05-13 15:35 | Outpatient (BNV) | payer OTHER, SELFPAY | PROVIDERS: PCP Internal Medicine; Visit Provider Internal Medicine Cardiovascular Disease | DX: I71.20 Thoracic aortic aneurysm, without rupture, unspecified (principal) | CPT/HCPCS: 93306 ==

== ENCOUNTER 2023-06-17 15:32 | Outpatient (AMB) | payer OTHER, SELFPAY ==
[2023-06-17 15:39] VITALS: BP 130/82; PULSE 78; O2SAT 95; BMI 25.7
--- NOTE | 2023-06-17 15:39 | A.OFFPC_ITS ---
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: No Allergies atorvastatin [Lipitor] Allergy (Unknown, Verified 06/17/23 16:15) joint px Medication List - Last Reconciled 06/17/23 by James Scott MD aspirin (Adult Low Dose Aspirin) 81 mg PO DAILY blood sugar diagnostic (TPACKuch Ultra Test strips) CHECK BLOOD GLUCOSE FOUR TIMES DAILY Humalog KwikPen Insulin (insulin lispro) 12 - 20 units (0.12 - 0.2 mL) subcut TID NS insulin glargine (Lantus U-100 Insulin) 27 units (0.27 mL) subcut BEDTIME 30 days lisinopril 10 mg PO DAILY pen needle, diabetic (BD Ultra-Fine Original Pen Needle) 1 ea miscellaneous TID pen needle, diabetic (BD Ultra-Fine Original Pen Needle) use to inject insulin 3 x daily Tobacco use date assessed: 06/17/23 Dental Screening Dental Screen Date: 06/17/23 Did you have a dental visit in the last 12 months?: Yes Did you have a dental problem in the last 6 months where you did not have access to dental care?: No Was dental information given to patient?: Patient has dentist HPI 4 month f/u HPI Details Patient comes in today for his follow up visit States that he has been under stress lately as his was just diagnosed with uterine cancer and is currently undergoing further work ups and is planning to start cancer Tx at [facility] soon Admits that he has not been very compliant with his diet lately and has been doing a lot of stress eating He denies any headaches or dizziness Denies any chest pains, no SOB No nausea/vomiting, no abdominal pain No change in bowel habits noted Was not able to get his follow up labs done prior to his appt today [facility] Medical History Pure hypercholesterolemia Benign essential hypertension Normal colonoscopy (~10/12/15) Blurred vision, bilateral CAD (coronary artery disease) Thoracic aortic aneurysm Bicuspid aortic valve HTN (hypertension) Hyperlipidemia Diabetes mellitus Surgical History Stented coronary artery Hx of cardiac cath (~2012) Family History Father Hypertension Mother Hypertension Diabetes Social History Housing: House Alcohol intake: current Alcohol intake frequency: holidays/special occasions only Patient Tobacco Use Status: Never used Tobacco e-Cigarette/Vaping Use: Never Used Second Hand Smoke Exposure: Yes service: No Current occupational status: employed Current occupational exposures/hazards: No Cognitive needs: No Hearing needs: No Vision needs: No Questionnaire PHQ-9 Over the last 2 weeks, how often have you been bothered by any of the following problems? 1. Little interest or pleasure in doing things: not at all 2. Feeling down, depressed, or hopeless: not at all 3. Trouble falling or staying asleep, or sleeping too much: not at all 4. Feeling tired or having little energy: not at all 5. Poor appetite or overeating: not at all 6. Feeling bad about yourself - or that you are a failure or have let yourself or your family down: not at all 7. Trouble concentrating on things, such as reading the newspaper or watching television: not at all 8. Moving or speaking so slowly that other people could have noticed. Or the opposite - being so fidgety or restless that you have been moving around a lot more than usual: not at all 9. Thoughts that you would be better off or of hurting yourself in some way: not at all Total score: 0 Depression Screening Interpretation: Negative Depression Screening Done: Yes 13782 - PHQ-9 Billing: Yes Source: Developed by Drs. Beau Mccarthy, Molly Lang, Julio Marquis and colleagues, with an educational nikki from [employer]. Thrive Questionnaire Date Thrive assessed: 06/17/23 I am a: Patient What is your living situation today?: I have a steady place to live Within the past 12 months, did the food you bought not last and you didn't have the money to get more?: Never true Within the past 12 months, did you worry whether your food would run out before you got money to buy more?: Never true Do you have trouble paying for medicines?: No Do you have trouble getting transportation to medical appointments?: No Do you have trouble paying your heating and electricity bill?: No Do you have trouble taking care of your child, family member or friend?: No Do you have trouble with day-to-day activities such as bathing, preparing meals, shopping, managing finances, etc.?: No Are you currently unemployed and looking for a job?: No Are you interested in more education?: No Please select the resources that you would like help with: None Currently or been in a relationship where the following occur: no concerns reported THRIVE Score: 0 AUDIT C Alcohol Use Questionnaire (AUDIT-C) 1. How often do you have a drink containing alcohol?: Monthly or less 2. How many drinks containing alcohol do you have on a typical day when you are drinking?: 1 or 2 3. How often do you have six or more drinks on one occasion?: Never Total Score: 1 Score Reviewed/Action Taken: Yes MILDRED-7 AMB Questionnaire MILDRED-7 Date MILDRED - 7 assessed: 06/17/23 Feeling nervous, anxious, or on edge: 0 = Not at all Not being able to stop or control worryin = Not at all Worrying too much about different things: 0 = Not at all Trouble relaxin = Not at all Being so restless that it is hard to sit still: 0 = Not at all Becoming easily annoyed or irritable: 0 = Not at all Feeling afraid as if something awful might happen: 0 = Not at all Total MILDRED-7 score (0-4 normal; 5-9 mild; 10-14 moderate; 15-21 severe): 0 Source: Developed by Drs. Beau Mccarthy, Molly Lang, Julio Marquis and colleagues, with an educational nikki from [employer]. Review of Systems Const Denies fatigue, Denies fever(s), Denies headache(s) and Reports weight loss ENT Denies dysphagia, Denies dizziness, Denies otalgia, Denies headache(s), Denies neck pain, Denies odynophagia and Denies sore throat Card Denies chest pain, Denies palpitations and Denies dyspnea Resp Denies cough and Denies dyspnea GI Denies abdominal pain, Denies constipation, Denies dysphagia, Denies heartburn, Denies diarrhea, Denies nausea, Denies odynophagia and Denies vomiting Denies dysuria, Denies nocturia and Denies urinary frequency Musc Denies back pain and Denies neck pain Neuro Denies dizziness and Denies headache(s) Endo Denies fatigue and Denies palpitations Physical exam (Primary Care) Vital Signs: Last Vital Signs Pulse 78 06/17/23 15:39 BP 130/82 06/17/23 15:39 Pulse Ox 95 06/17/23 15:39 Oxygen Delivery Method Room Air 06/17/23 15:39 BMI result Body Mass Index 25.7 Tobacco/Smoking Status: Tobacco use Status Tobacco use date assessed 06/17/23 06/17/23 15:42 Patient Tobacco Use Status Never used Tobacco 06/17/23 15:42 e-Cigarette/Vaping Use Never Used 06/17/23 15:42 PHQ-9: PHQ-9 Score PHQ-9: Total score 0 06/17/23 16:44 Depression Screening Interpretation: Negative Thrive Assessment: Date of Thrive Assessment Date Thrive assessed 06/17/23 06/17/23 15:42 Currently or been in a relationship where the following occur: no concerns reported Const General: no acute distress and alert HENMT Ears: TM's normal bilaterally and EAC's normal Throat: Yes posterior oropharynx normal and Yes tonsils normal (no TP congestion noted) Neck Neck: Yes no lymphadenopathy and Yes supple Resp Auscultation: clear to auscultation bilaterally, no rales and no wheezes Cardio Rate: regular rate Rhythm: regular rhythm Heart sounds: no murmurs GI Palpation (GI): Soft to palpation and nontender Auscultation: normal bowel sounds Extrem General: Yes no clubbing, cyanosis or edema Results AMB Hemoglobin A1c AMB Hemoglobin A1c 9.7 % Last Edit by Sherry Torres on 06/17/23 16:10 Results Reviewed Results Reviewed: Laboratory Last Values Hgb A1c (Clinic) 9.7 % (4.0-6.0) H 06/17/23 16:09 Assessment and Plan Assessment & Plan (1) Diabetes mellitus: Code(s): E11.9 - Type 2 diabetes mellitus without complications Qualifiers: Diabetes mellitus type: type 2 Diabetes mellitus long-term insulin use: with rodent exterminator use Diabetes mellitus complication status: with hyperglycemia Qualified Code(s): E11.65 - Type 2 diabetes mellitus with hyperglycemia; Z79.4 - retirement (current) use of insulin Plan: In-office HgbA1c done today is at 9.7% (was at 8.5% a few months ago) - goal is < 7.0% Reinforced diabetic diet - patient admits to poor dietary compliance lately as he has been feeling stressed frequently since his was diagnosed with uterine cancer and is currently undergoing further evaluation and Tx at the cancer center at [facility] Continue Lantus 17 to 27 units once a day and is again instructed to consider going up to 30 units QD Continue Humalog up to 12 units 3 times a day with meals per sliding scale (2) CAD (coronary artery disease): Code(s): I25.10 - Atherosclerotic heart disease of [place] coronary artery without angina pectoris Qualifiers: Coronary Disease-Associated Artery/Lesion type: [place] artery [place] vs. transplanted heart: [place] heart Associated angina: without angina Qualified Code(s): I25.10 - Atherosclerotic heart disease of [place] coronary artery without angina pectoris Plan: Patient currently remains asymptomatic cardiac-ward Continue Aspirin 81 mg QD Follow up with cardiology as scheduled (3) Pure hypercholesterolemia: Code(s): E78.00 - Pure hypercholesterolemia, unspecified Plan: Is still not able to get his follow up labs done; his last labs were done back in August 2021 Reinforced low cholesterol diet Continue his Atorvastatin 40 mg today; patient takes it together with Co-Q 10 tablets to help minimize/counteract his myalgias from the Rx Will have him recheck his fasting lipids and labs ANABELLA for follow-up (4) Benign essential hypertension: Code(s): I10 - Essential (primary) hypertension Plan: Reinforced low sodium diet - goal is systolic BP of 120 mm or less Continue Lisinopril 10 mg QD and Metoprolol ER 25 mg QD (5) Thoracic aortic aneurysm: Code(s): I71.2 - Thoracic aortic aneurysm, without rupture Qualifiers: Presence of rupture: without rupture Qualified Code(s): I71.2 - Thoracic aortic aneurysm, without rupture Plan: Most recent echocardiogram done on 05/13/2023 now shows the aneurysm to be at 4.6 cm - was at 4.5 cm on his echo last year on 05/22/2022, which was similar to his findings on his previous echocardiogram in April 2020 (showed moderate dilatation of the ascending aorta measuring 4.50 cm) Will need to continue close monitoring of his AA (6) Bicuspid aortic valve: Code(s): Q23.1 - Congenital insufficiency of aortic valve Plan: Echocardiogram done in April 2023 revealed normal LV ejection fraction of 60- 65% with grade 1 diastolic dysfunction, bicuspid aortic valve without significant Doppler abnormality, moderately dilated ascending aorta at 4.6 cm, normal RV systolic pressure and no gross pericardial effusion Plan Follow up in 4 months Orders: Orders Complete Blood Count Auto Diff 4 Months D64.9 - Anemia, unspecified Comprehensive [place]. Panel Fast 4 Months E78.00 - Pure hypercholesterolemia, unspecified Lipid Panel 4 Months E78.00 - Pure hypercholesterolemia, unspecified TSH reflex Free T4 4 Months E78.00 - Pure hypercholesterolemia, unspecified Microalbumin, Random (w Creat) 4 Months E11.9 - Type 2 diabetes mellitus without complications Hemoglobin A1c 4 Months E11.9 - Type 2 diabetes mellitus without complications AMB Hemoglobin A1c 06/17/23 Z13.9 - Encounter for screening, unspecified UA CC w/rflx Micro + Cult 4 Months R30.0 - Dysuria Coding Level of Care Code Est Pt Level 4 (77501) Diagnoses Type 2 diabetes mellitus with hyperglycemia, with long-term current use of insulin E11.65; Z79.4 Diabetes mellitus type: type 2 Diabetes mellitus rodent exterminator insulin use: with long-term use Diabetes mellitus complication status: with hyperglycemia Coronary artery disease involving [place] coronary artery of [place] heart without angina pectoris I25.10 Coronary Disease-Associated Artery/Lesion type: [place] artery [place] vs. transplanted heart: [place] heart Associated angina: without angina Pure hypercholesterolemia E78.00 Benign essential hypertension I10 Thoracic aortic aneurysm without rupture I71.2 Presence of rupture: without rupture Bicuspid aortic valve Q23.1
== END 2023-06-17 16:28 | disposition home or self-care (01) ==
PROVIDERS: PCP Internal Medicine; Visit Provider Internal Medicine
DX: E11.65 Type 2 diabetes mellitus with hyperglycemia (principal); Z79.4 Long term (current) use of insulin; I71.20 Thoracic aortic aneurysm, without rupture, unspecified; I25.10 Atherosclerotic heart disease of native coronary artery without angina pectoris; E78.00 Pure hypercholesterolemia, unspecified; I10 Essential (primary) hypertension; Q23.1 Congenital insufficiency of aortic valve
CPT/HCPCS: 83036; 99214

== ENCOUNTER 2023-10-17 15:17 | Outpatient (AMB) | payer OTHER, SELFPAY ==
--- NOTE | 2023-10-17 15:21 | A.OFFPC_ITS ---
Vital Signs 10/17/23 15:22 Height 5 ft 7 in Weight 156 lb 6 oz BMI 24.5 BP 112/64 Blood Pressure Location Lt brachial Position Sitting Pulse 84 Pulse Source Pulse Oximeter Pulse Oximetry (%) 98 Oxygen Delivery Method Room Air Intake Visit Reasons: 4mth f/u Intake Note: Patient is here to follow up on DM, HTN, CAD, HLD. Alarm Adjuster Required: No Automatic Machine Attendant: Not Required per policy Accompanied by: Self / Same As Patient Allergies atorvastatin [Lipitor] Allergy (Unknown, Verified 10/17/23 15:39) joint px Medication List - Last Reconciled 10/17/23 by James Scott MD aspirin (Adult Low Dose Aspirin) 81 mg PO DAILY blood sugar diagnostic (Vayable Ultra Test strips) CHECK BLOOD GLUCOSE FOUR TIMES DAILY Humalog KwikPen Insulin (insulin lispro) 12 - 20 units (0.12 - 0.2 mL) subcut TID NS insulin glargine (Lantus U-100 Insulin) 27 units (0.27 mL) subcut BEDTIME 30 days lisinopril 10 mg PO DAILY pen needle, diabetic (BD Ultra-Fine Original Pen Needle) use to inject insulin 3 x daily pen needle, diabetic (BD Ultra-Fine Original Pen Needle) 1 ea miscellaneous TID Tobacco use date assessed: 10/17/23 Dental Screening Dental Screen Date: 06/17/23 Did you have a dental visit in the last 12 months?: Yes Did you have a dental problem in the last 6 months where you did not have access to dental care?: No Was dental information given to patient?: Patient has dentist HPI 4mt f/u HPI Details Patient comes in today for his follow up visit States that he feels okay He denies any headaches or dizziness Denies any chest pains, no SOB No nausea/vomiting, no abdominal pain No change in bowel habits noted He needs several of his Rx refilled He still has not been able to get his follow up labs done - states that he often struggles with low blood sugars in the morning and he has to eat right away so it is very difficult for him to fast and come in to get his labs done [facility] Medical History Pure hypercholesterolemia Benign essential hypertension Normal colonoscopy (~10/12/15) Blurred vision, bilateral CAD (coronary artery disease) Thoracic aortic aneurysm Bicuspid aortic valve HTN (hypertension) Hyperlipidemia Diabetes mellitus Surgical History History of dental surgery Stented coronary artery Hx of cardiac cath (~2012) Family History Father Hypertension Mother Hypertension Diabetes Social History Housing: House Alcohol intake: current Alcohol intake frequency: holidays/special occasions only Patient Tobacco Use Status: Never used Tobacco e-Cigarette/Vaping Use: Never Used Second Hand Smoke Exposure: Yes service: No Current occupational status: employed Current occupational exposures/hazards: No Cognitive needs: No Hearing needs: No Vision needs: No Questionnaire Thrive Questionnaire Date Thrive assessed: 06/17/23 MILDRED-7 AMB Questionnaire MILDRED-7 Date MILDRED - 7 assessed: 06/17/23 Source: Developed by Drs. Beau Mccarthy, Molly Lang, Julio Marquis and colleagues, with an educational nikki from [employer]. Review of Systems Const Denies chills, Denies fatigue, Denies fever(s) and Denies headache(s) ENT Denies dysphagia, Denies dizziness, Denies otalgia, Denies headache(s), Denies neck pain, Denies odynophagia and Denies sore throat Card Denies chest pain, Denies palpitations and Denies dyspnea Resp Denies cough and Denies dyspnea GI Denies abdominal pain, Denies constipation, Denies dysphagia, Denies heartburn, Denies diarrhea, Denies nausea, Denies odynophagia and Denies vomiting Denies dysuria, Denies nocturia and Denies urinary frequency Musc Denies back pain and Denies neck pain Skin/Breast Denies rash Neuro Denies dizziness and Denies headache(s) Endo Denies fatigue and Denies palpitations Physical exam (Primary Care) Vital Signs: Last Vital Signs Pulse 84 10/17/23 15:22 BP 112/64 10/17/23 15:22 Pulse Ox 98 10/17/23 15:22 Oxygen Delivery Method Room Air 10/17/23 15:22 BMI result Body Mass Index 24.5 Tobacco/Smoking Status: Tobacco use Status Tobacco use date assessed 10/17/23 10/17/23 15:31 Patient Tobacco Use Status Never used Tobacco 10/17/23 15:31 e-Cigarette/Vaping Use Never Used 10/17/23 15:31 Thrive Assessment: Date of Thrive Assessment Date Thrive assessed 06/17/23 10/17/23 15:31 Const General: no acute distress and alert HENMT Ears: TM's normal bilaterally and EAC's normal Throat: Yes posterior oropharynx normal and Yes tonsils normal (no TP congestion noted) Neck Neck: Yes no lymphadenopathy and Yes supple Thyroid: Thyroid normal Resp Auscultation: clear to auscultation bilaterally, no rales and no wheezes Cardio Rate: regular rate Rhythm: regular rhythm Heart sounds: no murmurs GI Palpation (GI): Soft to palpation and nontender Auscultation: normal bowel sounds General: Yes no CVA tenderness Back/Spine/Pelvis Back: no CVA tenderness Thoracic/Lumbar Spine: No lumbar spinal tenderness Skin Rashes: no rashes Extrem General: Yes no clubbing, cyanosis or edema Results AMB Hemoglobin A1c AMB Hemoglobin A1c 8.9 % Last Edit by ANTONIO Villa on 10/17/23 15:35 Results Reviewed Results Reviewed: Laboratory Last Values Hgb A1c (Clinic) 8.9 % (4.0-6.0) H 10/17/23 15:20 Assessment and Plan Assessment & Plan (1) Diabetes mellitus: Code(s): E11.9 - Type 2 diabetes mellitus without complications Qualifiers: Diabetes mellitus type: type 2 Diabetes mellitus long-term insulin use: with long-term use Diabetes mellitus complication status: with hyperglycemia Qualified Code(s): E11.65 - Type 2 diabetes mellitus with hyperglycemia; Z79.4 - intermediate (current) use of insulin Plan: In-office HgbA1c done today is at 8.9% (was at 9.7% a few months ago) - goal is < 7.0% Reinforced diabetic diet Continue Lantus 17 to 27 units once a day and he is again instructed to consider going up to 30 units QD but he remains hesitant to do so as he often feels like his blood sugar tends to bottom out on him, especially in the morning Continue Humalog up to 12 units 3 times a day with meals per sliding scale (2) CAD (coronary artery disease): Code(s): I25.10 - Atherosclerotic heart disease of [place] coronary artery without angina pectoris Qualifiers: Coronary Disease-Associated Artery/Lesion type: [place] artery [place] vs. transplanted heart: [place] heart Associated angina: without angina Qualified Code(s): I25.10 - Atherosclerotic heart disease of [place] coronary artery without angina pectoris Plan: Patient currently remains asymptomatic cardiac-ward Continue Aspirin 81 mg QD Follow up with cardiology as scheduled (3) Pure hypercholesterolemia: Code(s): E78.00 - Pure hypercholesterolemia, unspecified Plan: He is still not able to get his follow up labs done - reminded that his last labs were done back in August 2021 and with his diabetes, we need to monitor his renal function regularly, among other issues, and that he should really try to make an effort to get these done ANABELLA Reinforced low cholesterol diet Continue Atorvastatin 40 mg QD; patient takes it together with Co-Q 10 tablets to help minimize/counteract his myalgias from the Rx Will have him recheck his fasting lipids and labs ANABELLA for follow-up (4) Benign essential hypertension: Code(s): I10 - Essential (primary) hypertension Plan: Reinforced low sodium diet - goal is systolic BP of 120 mm or less Continue Lisinopril 10 mg QD and Metoprolol ER 25 mg QD (5) Thoracic aortic aneurysm: Code(s): I71.2 - Thoracic aortic aneurysm, without rupture Qualifiers: Presence of rupture: without rupture Qualified Code(s): I71.2 - Thoracic aortic aneurysm, without rupture Plan: Most recent echocardiogram done on 05/13/2023 now shows the aneurysm to be at 4.6 cm - was at 4.5 cm on his echo a year ago on 05/22/2022, which was similar to his findings on his previous echocardiogram in April 2020 (showed moderate dilatation of the ascending aorta measuring 4.50 cm) Will need to continue close monitoring of his AA regularly (6) Bicuspid aortic valve: Code(s): Q23.1 - Congenital insufficiency of aortic valve Plan: Echocardiogram done in April 2023 revealed normal LV ejection fraction of 60- 65% with grade 1 diastolic dysfunction, bicuspid aortic valve without significant Doppler abnormality, moderately dilated ascending aorta at 4.6 cm, normal RV systolic pressure and no gross pericardial effusion Plan Follow up in 4 months Orders: Orders AMB Hemoglobin A1c Today E11.65 - Type 2 diabetes mellitus with hyperglycemia, Z79.4 - long term care social worker (current) use of insulin Vitamin D 25-OH Total Today E55.9 - Vitamin D deficiency, unspecified Medications: Refilled blood sugar diagnostic (OneTouch Ultra Test strips) CHECK BLOOD GLUCOSE FOUR TIMES DAILY 100 strips 12RF E11.65 - Type 2 diabetes mellitus with hyperglycemia, Z79.4 - long term care social worker (current) use of insulin pen needle, diabetic (BD Ultra-Fine Original Pen Needle) use to inject insulin 3 x daily 100 ea 12RF E10.22 - Type 1 diabetes mellitus with diabetic chronic kidney disease Humalog KwikPen Insulin (insulin lispro) 12 - 20 units (0.12 - 0.2 mL) subcut TID 15 mL 2RF NS lisinopril 10 mg PO DAILY 90 tabs 1RF pen needle, diabetic (BD Ultra-Fine Original Pen Needle) 1 ea miscellaneous TID 100 ea 3RF E11.9 - Type 2 diabetes mellitus without complications Coding Level of Care Code Est Pt Level 4 (77303) Diagnoses Type 2 diabetes mellitus with hyperglycemia, with long-term current use of insulin E11.65; Z79.4 Diabetes mellitus type: type 2 Diabetes mellitus technician terminal and repeater insulin use: with long-term use Diabetes mellitus complication status: with hyperglycemia Coronary artery disease involving [place] coronary artery of [place] heart without angina pectoris I25.10 Coronary Disease-Associated Artery/Lesion type: [place] artery [place] vs. transplanted heart: [place] heart Associated angina: without angina Pure hypercholesterolemia E78.00 Benign essential hypertension I10 Thoracic aortic aneurysm without rupture I71.2 Presence of rupture: without rupture Bicuspid aortic valve Q23.1
[2023-10-17 15:22] VITALS: BP 112/64; PULSE 84; O2SAT 98; BMI 24.5
== END 2023-10-17 15:44 | disposition home or self-care (01) ==
PROVIDERS: PCP Internal Medicine; Visit Provider Internal Medicine
DX: E11.65 Type 2 diabetes mellitus with hyperglycemia (principal); Z79.4 Long term (current) use of insulin; I71.20 Thoracic aortic aneurysm, without rupture, unspecified; I25.10 Atherosclerotic heart disease of native coronary artery without angina pectoris; E78.00 Pure hypercholesterolemia, unspecified; I10 Essential (primary) hypertension; Q23.1 Congenital insufficiency of aortic valve
CPT/HCPCS: 83036; 99214

== ENCOUNTER → 2024-02-23 15:55 | Outpatient (BNVA) | payer OTHER, SELFPAY | PROVIDERS: PCP Internal Medicine; Visit Provider Internal Medicine ==

== ENCOUNTER 2024-04-19 08:11 | Outpatient (AMB) | payer OTHER, SELFPAY ==
--- NOTE | 2024-04-19 08:27 | MHC.OFFVIS ---
Vital Signs 04/19/24 08:28 Height 5 ft 7 in Weight 163 lb 2.273 oz BMI 25.5 BP 114/76 Blood Pressure Location Lt brachial Position Sitting Pulse 70 Intake Visit Reasons: 1 year fu Intake Note: 1 year follow-up with ekg feeling ok Package Crimper Required: No Allergies atorvastatin [Lipitor] Allergy (Unknown, Verified 10/17/23 15:39) joint px Medication List - Last Reconciled 04/19/24 by Juan Yen MD aspirin (Adult Low Dose Aspirin) 81 mg PO DAILY blood sugar diagnostic (Labs on the Gouch Ultra Test strips) CHECK BLOOD GLUCOSE FOUR TIMES DAILY [blood sugar monitor As directed] Humalog KwikPen Insulin (insulin lispro) 12 - 20 units (0.12 - 0.2 mL) subcut TID NS insulin glargine (Lantus U-100 Insulin) 27 units (0.27 mL) subcut BEDTIME 30 days lisinopril 10 mg PO DAILY pen needle, diabetic (BD Ultra-Fine Original Pen Needle) use to inject insulin 3 x daily pen needle, diabetic (BD Ultra-Fine Original Pen Needle) 1 ea miscellaneous TID HPI Comments Details: David comes for follow-up. He said last year he has been tough on him as his was going through cancer treatment. He was not able to take care of himself significantly. His hemoglobin A1c is 8.9. He is currently also not taking statin therapy. He has also not been exercising as he says he his work day and work at home takes all of his time. He denies any exertional chest pain or shortness of breath. Takes his medications of aspirin, lisinopril, insulin. Overall no heart failure symptoms. No lightheadedness, syncope. No prolonged palpitation irregular heartbeat [facility] Medical History Pure hypercholesterolemia Benign essential hypertension Normal colonoscopy (~10/12/15) Blurred vision, bilateral CAD (coronary artery disease) Thoracic aortic aneurysm Bicuspid aortic valve HTN (hypertension) Hyperlipidemia Diabetes mellitus Surgical History History of dental surgery Stented coronary artery Hx of cardiac cath (~2012) Family History Father Hypertension Mother Hypertension Diabetes Social History Housing: House Alcohol intake: current Alcohol intake frequency: holidays/special occasions only Patient Tobacco Use Status: Never used Tobacco e-Cigarette/Vaping Use: Never Used Second Hand Smoke Exposure: Yes service: No Current occupational status: employed Current occupational exposures/hazards: No Cognitive needs: No Hearing needs: No Vision needs: No Review of Systems Const Denies chills, Denies fatigue, Denies fever(s), Denies frequent falls, Denies weakness, Denies weight gain and Denies weight loss ENT Denies dizziness Card Denies chest pain, Denies leg edema, Denies lightheadedness, Denies palpitations, Denies dyspnea, Denies dyspnea on exertion, Denies orthopnea and Denies other (loss of consciousness) Resp Denies cough, Denies dyspnea and Denies dyspnea on exertion GI Denies hematochezia and Denies change in stool character Musc Denies abnormal gait, Denies muscle weakness, Denies numbness, Denies radiating pain into limb and Denies tingling Neuro Denies abnormal gait, Denies dizziness, Denies frequent falls, Denies numbness, Denies tingling and Denies weakness Endo Denies fatigue and Denies palpitations Physical Exam Vital Signs: Last Vital Signs Pulse 70 04/19/24 08:28 BP 114/76 04/19/24 08:28 BMI result Body Mass Index 25.5 Const General: cooperative, healthy appearing, no acute distress, alert and awake Nutritional Appearance: overweight Orientation/consciousness: patient oriented x3 Limitations: no limitations HEENT Head: Yes normal to inspection, Yes normocephalic and Yes atraumatic Eyes General: appearance normal, both eyes and all related structures Neck Neck: Yes normal visual inspection, Yes trachea midline, Yes supple and Yes no JVD Carotids: other ( No carotid bruit) Chest Chest palpation & inspection: normal inspection of the chest Resp Effort & Inspection: normal respiratory effort Auscultation: clear to auscultation bilaterally Cardio Jugular venous distension: no JVD Palpation: normal PMI Rate: regular rate Rhythm: regular rhythm Heart sounds: S1 normal heart sound present and S2 normal heart sound present Peripheral pulses: Peripheral pulses 2+ throughout GI Inspection: Yes normal to inspection Skin General skin exam: no rashes or lesions noted and no ecchymosis Neuro General: patient oriented x3 and no focal motor deficits Extrem General: Yes no clubbing, cyanosis or edema Psych Appearance: grossly normal Office Procedures EKG Details: EKG shows normal sinus rhythm with normal EKG [id number], Complete Assessment & Plan Assessment & Plan (1) CAD (coronary artery disease): Code(s): I25.10 - Atherosclerotic heart disease of [place] coronary artery without angina pectoris Category: Medical Qualifiers: Coronary Disease-Associated Artery/Lesion type: [place] artery [place] vs. transplanted heart: [place] heart Associated angina: without angina Qualified Code(s): I25.10 - Atherosclerotic heart disease of [place] coronary artery without angina pectoris Plan: CAD with premature atherosclerosis with drug-eluting stent with no current symptoms. No further workup is indicated. He is not on guideline based medical therapy and not optimized on risk factor of perspective. His hemoglobin A1c is not well optimized and consider adding GLP 1 antagonist given his atherosclerotic disease. Also we discussed about lipid management. He is intolerant to statin and therefore should consider alternative therapy such as PCSK9 inhibitor therapy. Advise baseline lipid panel and CRP in near future. Target goal LDL closer to 55 mg/dL by recent guidelines and would benefit from significant reduction in his LDL cholesterol to reduce future atherosclerotic risk. Continue low-dose aspirin therapy for life. (2) Thoracic aortic aneurysm: Code(s): I71.2 - Thoracic aortic aneurysm, without rupture Category: Medical Qualifiers: Presence of rupture: without rupture Qualified Code(s): I71.2 - Thoracic aortic aneurysm, without rupture Plan: Thoracic aortic aneurysm which is moderate by last echocardiogram, related to bicuspid aortic valve disease. Last measured at 4.6 cm. Currently needs repeat echocardiogram on annual basis. Follow-up in 1 month's time for echocardiogram. Advise avoid sudden strenuous isometric exercise. Continue aggressive blood pressure control on current lisinopril therapy. Target goal blood pressure less than 130/84. Repair size would be 5 cm and this was discussed with him. Will follow up in the clinic in 1 year's time, sooner p.r.n.. Thank you for allowing me to partake in his care Orders: Orders CA echo transthoracic complete 1 Month I71.2 - Thoracic aortic aneurysm, without rupture Lipid Panel Today I25.10 - Atherosclerotic heart disease of [place] coronary artery without angina pectoris CRP High Sensitivity Today E78.5 - Hyperlipidemia, unspecified, I25.10 - Atherosclerotic heart disease of [place] coronary artery without angina pectoris Coding Level of Care Code Est Pt Level 4 (12827) Complex EM visit Add On G2211 Diagnoses Coronary artery disease involving [place] coronary artery of [place] heart without angina pectoris I25.10 Coronary Disease-Associated Artery/Lesion type: [place] artery [place] vs. transplanted heart: [place] heart Associated angina: without angina Thoracic aortic aneurysm without rupture I71.2 Presence of rupture: without rupture CPT Codes EKG - CPT: 83694-[id number], Complete ([id number])
[2024-04-19 08:28] VITALS: BP 114/76; PULSE 70; BMI 25.5
== END 2024-04-19 08:52 | disposition home or self-care (01) ==
PROVIDERS: PCP Internal Medicine; Visit Provider Internal Medicine Cardiovascular Disease
DX: I25.10 Atherosclerotic heart disease of native coronary artery without angina pectoris (principal); I71.20 Thoracic aortic aneurysm, without rupture, unspecified
CPT/HCPCS: 93010; 99214; G2211

== ENCOUNTER → 2024-04-19 08:11 | Outpatient (BNVA) | payer OTHER, SELFPAY | PROVIDERS: PCP Internal Medicine; Visit Provider Internal Medicine Cardiovascular Disease | DX: I25.10 Atherosclerotic heart disease of native coronary artery without angina pectoris (principal); I71.20 Thoracic aortic aneurysm, without rupture, unspecified; Z79.899 Other long term (current) drug therapy | CPT/HCPCS: 93005 ==

== ENCOUNTER → 2024-05-20 07:10 | Outpatient (REF) | payer OTHER, SELFPAY ==
--- NOTE | 2024-05-20 07:37 | CA_ITS ---
Transthoracic Echocardiogram Patient (Last, First, Middle): David Joshi A Gender: Male Date of : 1965 Age: 58 Procedure Date: 05/20/2024 Procedure Type: Transthoracic Echocardiogram Location: OP Height: 172.72 cm Weight: 74.84 kg BSA: 1.88 m2 Heart Rate: bpm BP: 126 / 78 mmHg Academic Coach: TO Referring MD: Juan Yen MD Unit Reactor Operator: Juan Yen MD Symptoms: I71.2 - Thoracic aortic aneurysm, without rupture Study Quality: Adequate ECG Rhythm: Sinus Conclusions: - 1. Normal LV ejection fraction of 60-65% with grade 1 diastolic dysfunction 2. Bicuspid aortic valve with normal cardiac valvular Dopplers 3. Moderately dilated ascending aorta at 4.6 cm 4. No gross pericardial effusion Findings Left Ventricle Normal left ventricular size, thickness, and systolic function. The visually estimated ejection fraction is between 60-65%. Spectral Doppler is indicative of an impaired relaxation filling pattern. E/E prime ratio is <8, consistent with normal filling pressures. Evidence suggests grade I (mild) diastolic dysfunction. Right Ventricle Normal right ventricular cavity size and systolic function. Atria Both atria are normal in size. There is lipomatous hypertrophy of the interatrial septum. There is no evidence of interatrial shunt. Aortic Valve There is a bicuspid aortic valve. There is mild calcification of the aortic valve. There is mild thickening of the aortic valve. There is no aortic valve stenosis. There is no aortic valve regurgitation. Mitral Valve There is mild anterior mitral leaflet thickening. There is trace mitral valve regurgitation. There is no mitral valve stenosis. Pulmonic Valve The pulmonic valve is likely normal. Tricuspid Valve Normal tricuspid valve structure. Tricuspid regurgitation envelope is inadequate for calculation of right ventricular systolic pressure. Normal right atrial pressure. Great Vessels The pulmonary artery was not well visualized. There is moderate dilatation of the ascending aorta measuring 4.60 cm. Venous The inferior vena cava is normal in size and collapses greater than 50% with inspiration. Pericardium/Pleural There is no evidence of pericardial effusion. Prior Study Comparison No significant change compared to prior study dated: 05/13/2023. Measurements 2D Linear Measurements IVSd: 0.91 0.6-0.9/0.6-1.0 cm LVIDd: 4.54 3.9-5.3/4.2-5.9 cm LVIDd Index: 2.41 2.4-3.2/2.2-3.1 cm/m2 LVIDs: 2.75 2.0-3.6 cm LVPWd: 0.82 0.7-1.1 cm LA Diam: 3.00 2.7-3.8/3.0-4.0 cm LAIDs Index: 1.60 1.5-2.3 cm/m2 LV Mass: 158.54 67-162/88-224 g LV Mass Index: 84.33 43-95/49-115 g/m2 LVOT Diam: 2.30 3.0+(-)1.3 cm 2D Systolic Function EF 4C: 67.90 >55% EF 2C: 61.70 >55% EF BiP: 63.30 >55% Mitral Valve MV Pk E: 0.65 MV PK A: 0.75 MV Decel Time: 285.00 E/A: 0.90 E'Lateral: 6.74 E'Medial: 5.44 E/E' Med: 11.90 E/E' Lat: 9.60 PHT: 84.00 MVA PHT: 2.62 Decel [place]: 2.27 Aortic Valve AoV Pk Sanjay: 1.55 AoV Mn Sanjay: 1.10 AoV VTI: 0.27 AoV Pk Grad: 10.00 Aov Mn Grad: 5.00 MELQU[place]ADES Cont.VTI: 3.34 LVOT LVOT Pk Sanjay: 1.02 LVOT Mn Sanjay: 0.72 LVOT VTI: 0.22 LVOT Pk Grad: 4.00 LVOT Mn Grad: 2.00 LVOT Diam: 2.30 LVOT Area: 4.15 Diastolic Function MV Pk E: 0.65 MV Pk A: 0.75 E/A: 0.90 E'Medial: 5.44 E/E' Med: 11.90 E' Laterial: 6.74 E/E' Lat: 9.60 Right Ventricle TAPSE (mm): 21.60 TVS' Sanjay: 12.40 Tricuspid Valve RA Press: 3.00 Great Vessels Aorta Sinus of Valsalva: 4.04 2.0-3.5 cm Ao Asc: 4.60 2.1-3.4 cm Ao Arch: 3.10 Updated in Other Vendor System with Status of Final Juan Yen MD electronically signed on 05/20/2024 4:37:09 PM with status of Final
[2024-05-20 08:19] LABS: Cholesterol 339 mg/dL (<200); HDL Cholesterol 58 mg/dL (>40); LDL Cholesterol Calculated 224 mg/dL (<100); Triglycerides 287 mg/dL (<150)
[2024-05-21 09:59] LABS: CRP High Sensitivity 8.7 mg/L
== END ==
LOC: HO.CARD 07:10
PROVIDERS: Absent Provider Internal Medicine; PCP Internal Medicine; Visit Provider Internal Medicine Cardiovascular Disease
DX: I25.10 Atherosclerotic heart disease of native coronary artery without angina pectoris (principal); E78.5 Hyperlipidemia, unspecified; I71.20 Thoracic aortic aneurysm, without rupture, unspecified
CPT/HCPCS: 36415; 80061; 86141; 93306

== ENCOUNTER → 2024-05-20 07:37 | Outpatient (BNV) | payer OTHER, SELFPAY | PROVIDERS: Absent Provider Internal Medicine; PCP Internal Medicine; Visit Provider Internal Medicine Cardiovascular Disease | DX: Q23.81 Bicuspid aortic valve (principal); I35.8 Other nonrheumatic aortic valve disorders; I71.21 Aneurysm of the ascending aorta, without rupture | CPT/HCPCS: 93303; 93320; 93325 ==

== ENCOUNTER 2024-12-16 10:06 | Outpatient (AMB) | payer OTHER, SELFPAY ==
[2024-12-16 10:08] VITALS: BP 122/84; PULSE 87; O2SAT 97; BMI 23.9
--- NOTE | 2024-12-16 10:08 | MHC.PC.OV ---
Vital Signs 12/16/24 10:08 Height 5 ft 7 in Weight 152 lb 8 oz BMI 23.9 BP 122/84 Blood Pressure Location Lt brachial Position Sitting Pulse 87 Pulse Source Pulse Oximeter Pulse Oximetry (%) 97 Oxygen Delivery Method Room Air Intake Visit Reasons: annual exam Vp Strategic Planning Required: No Accompanied by: Self / Same As Patient Allergies atorvastatin (Lipitor) Allergy (Unknown, Verified 12/16/24 10:39) joint px Medication List - Last Reconciled 12/16/24 by James Scott MD aspirin (Adult Low Dose Aspirin) 81 mg PO DAILY blood sugar diagnostic ([employer] Ultra Test strips) CHECK BLOOD GLUCOSE FOUR TIMES DAILY [blood sugar monitor As directed] evolocumab (Repatha SureClick) 140 mg subcut Q2W Humalog KwikPen Insulin (insulin lispro) 12 - 20 units (0.12 - 0.2 mL) subcut TID NS insulin glargine (Lantus U-100 Insulin) 27 units (0.27 mL) subcut BEDTIME 30 days lisinopril 10 mg PO DAILY pen needle, diabetic (BD Ultra-Fine Original Pen Needle) 1 ea miscellaneous TID pen needle, diabetic use to inject insulin 3 x daily Tobacco use date assessed: 12/16/24 Dental Screening Dental Screen Date: 12/16/24 Did you have a dental visit in the last 12 months?: No Did you have a dental problem in the last 6 months where you did not have access to dental care?: No Was dental information given to patient?: Patient has dentist [facility] Medical History Pure hypercholesterolemia Benign essential hypertension Normal colonoscopy (~10/12/15) Blurred vision, bilateral CAD (coronary artery disease) Thoracic aortic aneurysm Bicuspid aortic valve HTN (hypertension) Hyperlipidemia Diabetes mellitus Surgical History History of dental surgery Stented coronary artery Hx of cardiac cath (~2012) Family History Father Hypertension Mother Hypertension Diabetes Social History Housing: House Alcohol intake: current Alcohol intake frequency: holidays/special occasions only Patient Tobacco Use Status: Never used Tobacco e-Cigarette/Vaping Use: Never Used Second Hand Smoke Exposure: Yes service: No Current occupational status: employed Current occupational exposures/hazards: No Cognitive needs: No Hearing needs: No Vision needs: No Questionnaire PHQ-9 Over the last 2 weeks, how often have you been bothered by any of the following problems? 1. Little interest or pleasure in doing things: not at all 2. Feeling down, depressed, or hopeless: not at all 3. Trouble falling or staying asleep, or sleeping too much: not at all 4. Feeling tired or having little energy: more than half the days 5. Poor appetite or overeating: not at all 6. Feeling bad about yourself - or that you are a failure or have let yourself or your family down: not at all 7. Trouble concentrating on things, such as reading the newspaper or watching television: not at all 8. Moving or speaking so slowly that other people could have noticed. Or the opposite - being so fidgety or restless that you have been moving around a lot more than usual: not at all 9. Thoughts that you would be better off or of hurting yourself in some way: not at all Total score: 2 Depression Screening Interpretation: Negative Depression Screening Done: Yes 36610 - PHQ-9 Billing: Yes Source: Developed by Drs. Beau Mccarthy, Molly Lang, Julio Marquis and colleagues, with an educational nikki from [employer]. Thrive Questionnaire Date Thrive assessed: 12/16/24 I am a: Patient What is your living situation today?: I have a steady place to live Within the past 12 months, did the food you bought not last and you didn't have the money to get more?: Never true Within the past 12 months, did you worry whether your food would run out before you got money to buy more?: Never true Do you have trouble paying for medicines?: No Do you have trouble getting transportation to medical appointments?: No Do you have trouble paying your heating and electricity bill?: No Do you have trouble taking care of your child, family member or friend?: No Do you have trouble with day-to-day activities such as bathing, preparing meals, shopping, managing finances, etc.?: No Are you currently unemployed and looking for a job?: No Are you interested in more education?: Yes Please select the resources that you would like help with: None Currently or been in a relationship where the following occur: No concerns reported THRIVE Score: 0 AUDIT C Alcohol Use Questionnaire (AUDIT-C) 1. How often do you have a drink containing alcohol?: Never 3. How often do you have six or more drinks on one occasion?: Never Total Score: 0 Score Reviewed/Action Taken: Yes MILDRED-7 AMB Questionnaire MILDRED-7 Date MILDRED - 7 assessed: 12/16/24 Feeling nervous, anxious, or on edge: 0 = Not at all Not being able to stop or control worryin = Not at all Worrying too much about different things: 0 = Not at all Trouble relaxin = Not at all Being so restless that it is hard to sit still: 0 = Not at all Becoming easily annoyed or irritable: 0 = Not at all Feeling afraid as if something awful might happen: 0 = Not at all Total MILDRED-7 score (0-4 normal; 5-9 mild; 10-14 moderate; 15-21 severe): 0 Source: Developed by Drs. Beau Mccarthy, Molly Lang, Julio Marquis and colleagues, with an educational nikki from [employer]. Review of Systems Const Denies chills, Denies fatigue, Denies fever(s), Denies headache(s), Denies malaise and Denies weakness Eyes Denies blurry vision, Denies change in vision, Denies irritation and Denies itchy eyes ENT Denies dysphagia, Denies dizziness, Denies otalgia, Denies headache(s), Denies nasal congestion, Denies neck pain, Denies odynophagia and Denies sore throat Card Denies chest pain, Denies rapid heart rate, Denies irregular heart rhythm, Denies palpitations and Denies dyspnea Resp Denies chest congestion, Denies cough, Denies dyspnea and Denies wheezing GI Denies abdominal pain, Denies bloating, Denies constipation, Denies dysphagia, Denies heartburn, Denies diarrhea, Denies nausea, Denies odynophagia and Denies vomiting Denies hematuria, Denies difficulty urinating, Denies dysuria, Denies urinary frequency and Denies urinary urgency Musc Denies back pain, Denies arthralgias, Denies joint swelling, Denies muscle weakness and Denies neck pain Skin/Breast Denies change in pigmentation, Denies lesions, Denies rash and Denies unusual bruising Neuro Denies dizziness, Denies headache(s), Denies paresthesias and Denies weakness Endo Denies fatigue and Denies palpitations Aller/Immun Denies itchy eyes and Denies wheezing Physical exam (Primary Care) Vital Signs: Last Vital Signs Pulse 87 12/16/24 10:08 BP 122/84 12/16/24 10:08 Pulse Ox 97 12/16/24 10:08 Oxygen Delivery Method Room Air 12/16/24 10:08 BMI result Body Mass Index 23.9 Tobacco/Smoking Status: Tobacco use Status Tobacco use date assessed 12/16/24 12/16/24 10:09 Patient Tobacco Use Status Never used Tobacco 12/16/24 10:09 e-Cigarette/Vaping Use Never Used 12/16/24 10:09 PHQ-9: PHQ-9 Score PHQ-9: Total score 2 12/16/24 10:41 Depression Screening Interpretation: Negative Thrive Assessment: Date of Thrive Assessment Date Thrive assessed 12/16/24 12/16/24 10:09 Currently or been in a relationship where the following occur: No concerns reported Const General: no acute distress, alert and awake Orientation/consciousness: patient oriented x3 HENMT Head: Yes normocephalic and Yes atraumatic Ears: external ears normal, TM's normal bilaterally and EAC's normal General nose exam: No nasal discharge present Face and sinus: Yes normal facial exam and Yes sinuses nontender Teeth and gingiva: dentition normal Throat: Yes posterior oropharynx normal and Yes tonsils normal (no TP congestion) Eyes Eyelids: Yes eyelids normal Conjunctivae: conjunctivae normal Pupils: Equal, round and reactive pupils present EOM: EOMs intact bilaterally Neck Neck: Yes no lymphadenopathy and Yes supple Thyroid: Thyroid normal Resp Auscultation: clear to auscultation bilaterally, no rales and no wheezes Cardio Rate: regular rate Rhythm: regular rhythm Heart sounds: no murmurs GI Palpation (GI): Soft to palpation, nontender and No hepatosplenomegaly present Auscultation: normal bowel sounds General: Yes no CVA tenderness Back/Spine/Pelvis Back: no CVA tenderness Thoracic/Lumbar Spine: thoracic and lumbar spine normal to inspection Skin Lesions: no lesions Rashes: no rashes Neuro General: patient oriented x3, moves all extremities, no focal motor deficits and CN's II-XI intact bilaterally Cranial nerves: Yes Equal, round and reactive pupils present Cognition (Neuro): normal cognition Gait exam (Neuro): Normal gait present Extrem General: Yes no clubbing, cyanosis or edema Results AMB Hemoglobin A1c AMB Hemoglobin A1c 9.2 % Last Edit by ANTONIO Black on 12/16/24 10:35 Results Reviewed Results Reviewed: Laboratory Last Values Hgb A1c (Clinic) 9.2 % (4.0-6.0) H 12/16/24 10:22 Coding Diagnoses Annual physical exam Z00.00 Additional Codes PHQ-9 - 51001 - PHQ-9 Billing: Yes ([id number]) Assessment & Plan Assessment & Plan (1) Annual physical exam: Code(s): Z00.00 - Encounter for general adult medical examination without abnormal findings Category: Medical Plan: Check labs He will be due for repeat colonoscopy next year (2025) Orders: Orders Lipid Panel Today E78.00 - Pure hypercholesterolemia, unspecified, Z00.00 - Encounter for general adult medical examination without abnormal findings Hemoglobin A1c Today E11.9 - Type 2 diabetes mellitus without complications, Z00.00 - Encounter for general adult medical examination without abnormal findings TSH reflex Free T4 Today E78.00 - Pure hypercholesterolemia, unspecified, Z00.00 - Encounter for general adult medical examination without abnormal findings UA CC w/rflx Micro + Cult Today R30.0 - Dysuria, Z00.00 - Encounter for general adult medical examination without abnormal findings Vitamin D 25-OH Total Today E55.9 - Vitamin D deficiency, unspecified, Z00.00 - Encounter for general adult medical examination without abnormal findings AMB Hemoglobin A1c Today Z13.9 - Encounter for screening, unspecified Complete Blood Count Auto Diff Today D64.9 - Anemia, unspecified, Z00.00 - Encounter for general adult medical examination without abnormal findings Comprehensive Arjay. Panel Fast Today E78.00 - Pure hypercholesterolemia, unspecified, Z00.00 - Encounter for general adult medical examination without abnormal findings Microalbumin, Random (w Creat) Today E11.9 - Type 2 diabetes mellitus without complications, Z00.00 - Encounter for general adult medical examination without abnormal findings Vitamin B12 and Folate Today E53.8 - Deficiency of other specified B group vitamins, Z00.00 - Encounter for general adult medical examination without abnormal findings Prostate Specific Antigen Today N40.0 - Benign prostatic hyperplasia without lower urinary tract symptoms, Z00.00 - Encounter for general adult medical examination without abnormal findings Referrals Ophthalmology Referral E11.9 - Type 2 diabetes mellitus without complications Medications: New 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
== END 2024-12-16 11:01 | disposition home or self-care (01) ==
LOC: HO.HMCH 10:07
PROVIDERS: PCP Internal Medicine; Visit Provider Internal Medicine
DX: Z13.9 Encounter for screening, unspecified (principal)

== ENCOUNTER → 2024-12-16 10:06 | Outpatient (BNVA) | payer OTHER, SELFPAY | PROVIDERS: PCP Internal Medicine; Visit Provider Internal Medicine | DX: Z00.00 Encounter for general adult medical examination without abnormal findings (principal); E11.65 Type 2 diabetes mellitus with hyperglycemia; E78.00 Pure hypercholesterolemia, unspecified; I25.10 Atherosclerotic heart disease of native coronary artery without angina pectoris; I10 Essential (primary) hypertension; I71.20 Thoracic aortic aneurysm, without rupture, unspecified; Z79.4 Long term (current) use of insulin; Z79.82 Long term (current) use of aspirin; Z79.899 Other long term (current) drug therapy; Z13.31 Encounter for screening for depression; Z13.39 Encounter for screening examination for other mental health and behavioral disorders | CPT/HCPCS: 83036; 96127 ==

== ENCOUNTER 2024-12-21 07:33 | Outpatient (REF) | payer OTHER, SELFPAY ==
[2024-12-21 07:45] LABS: MANUAL DIFF FLAG NO
[2024-12-21 08:15] LABS: Hematocrit 45.1 % (42.0-52.0); Hemoglobin 15.4 g/dl (14.0-18.0); Imm Gran Abs Auto 0.03 X10*3/uL (0.00-0.03); Imm Gran Pct Auto 0.4 % (0.0-0.4); Lymphocytes Absolute Auto 1.7 X10*3/uL (1.2-4.9); Mean Corpuscular HGB Conc 34.1 g/dl (31.0-36.0); Mean Corpuscular Hemoglobin 29.4 pg (27.0-33.0); Mean Corpuscular Volume 86.1 fL (80.0-98.0); NRBC Abs Auto 0.000 X10*3/uL (0.0-0.012); NRBC Pct Auto 0.0 /100WBC (0.0-0.2); Platelet Count 234 X10*3/uL (160-400); Red Blood Count 5.24 X10*6/uL (4.60-5.80); White Blood Count 7.0 X10*3/uL (4.8-10.8)
[2024-12-21 08:25] LABS: Hemoglobin A1C 301.1653 umol/L; Total Hemoglobin (HGBA1C) 4070.7835 umol/L
[2024-12-21 09:00] LABS: Alanine Aminotransferase 41 U/L (0-40); Albumin Level 4.3 g/dL (3.5-5.0); Alkaline Phosphatase 61 U/L (39-117); Anion Gap 12 (12-20); Aspartate Amino Transferase 38 U/L (5-37); Blood Urea Nitrogen 20 mg/dL (9-16); Calcium 8.7 mg/dL (8.4-10.2); Carbon Dioxide 26 mmol/L (22-29); Chloride 104 mmol/L (96-108); Cholesterol 234 mg/dL (<200); Estimated Glomerular Filt Rate 57; HDL Cholesterol 51 mg/dL (>40); Potassium 4.6 mmol/L (3.3-5.1); Sodium 137 mmol/L (135-145); Total Protein 6.6 g/dL (6.5-8.0); Triglycerides 141 mg/dL (<150)
[2024-12-21 09:01] LABS: Appearance Urine Clear; Glucose Urine UA Negative (Negative); PH 5.5 (5.0-9.0); Specific Gravity - Urine 1.020 (1.005-1.025)
[2024-12-21 09:27] LABS: Folate 14.3 ng/mL (> or = 4.0); Prostate Specific Antigen 0.35 ng/mL (<0.05-4.0); Vitamin B12 1882 pg/mL (200-900)
[2024-12-21 09:31] LABS: Microalbum/Creatinine Ratio Ur 5.6 ug/mg cr (<30)
== END 2024-12-21 07:34 | disposition home or self-care (01) ==
LOC: HO.LAB 07:33
PROVIDERS: Visit Provider Internal Medicine
DX: Z00.00 Encounter for general adult medical examination without abnormal findings (principal); E78.00 Pure hypercholesterolemia, unspecified; R30.0 Dysuria; E55.9 Vitamin D deficiency, unspecified; D64.9 Anemia, unspecified; E53.8 Deficiency of other specified B group vitamins; E11.9 Type 2 diabetes mellitus without complications; N40.0 Benign prostatic hyperplasia without lower urinary tract symptoms; Z12.5 Encounter for screening for malignant neoplasm of prostate
CPT/HCPCS: 36415; 80053; 80061; 81003; 82043; 82306; 82570; 82607; 82746; 83036; 84153; 84443; 85025

== ENCOUNTER 2025-04-04 14:38 | Outpatient (AMB) | payer OTHER, SELFPAY ==
--- NOTE | 2025-04-04 14:47 | A.OFFVIS_ITS ---
Vital Signs 04/04/25 14:48 Height 5 ft 7 in Weight 163 lb 2.273 oz BMI 25.5 BP 140/64 H Blood Pressure Location Lt brachial Position Sitting Pulse 83 Pulse Source Monitor Intake Visit Reasons: 1 yr follow up Intake Note: 1 Year Follow up Mental Health Social Worker Required: No Accompanied by: Self / Same As Patient Allergies atorvastatin (Lipitor) Allergy (Unknown, Verified 04/04/25 14:53) joint px Medication List - Last Reconciled 04/04/25 by Juan Yen MD aspirin (Adult Low Dose Aspirin) 81 mg PO DAILY blood sugar diagnostic ([employer] Ultra Test strips) CHECK BLOOD GLUCOSE FOUR TIMES DAILY [blood sugar monitor As directed] blood-glucose sensor ([employer] Brandon 3 Sensor device) As directed 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 He has stopped taking lisinopril therapy and thinks that it is adequate to take super beats. Patient has also stopped taking his PCSK9 inhibitor therapy. His last LDL was significantly elevated for his underlying risk factors. Patient comes for follow-up. Denies any symptoms. He said he has been regularly exercising and has no exertional symptoms of chest pain or shortness of breath. Denies any prolonged palpitation irregular heartbeat. No lightheadedness, syncope. [facility] Medical History Essential hypertension Pure hypercholesterolemia Normal colonoscopy (~10/12/15) Blurred vision, bilateral CAD (coronary artery disease) Thoracic aortic aneurysm Bicuspid aortic valve Diabetes mellitus Surgical History History of dental surgery Stented coronary artery Hx of cardiac cath (~2012) Family History Father Hypertension Mother Hypertension Diabetes Social History Housing: House Alcohol intake: current Alcohol intake frequency: holidays/special occasions only Patient Tobacco Use Status: Never used Tobacco e-Cigarette/Vaping Use: Never Used Second Hand Smoke Exposure: Yes service: No Current occupational status: employed Current occupational exposures/hazards: No Cognitive needs: No Hearing needs: No Vision needs: No Review of Systems Const Denies daytime sleepiness, Denies difficulty sleeping, Denies snoring, Denies stops breathing during sleep and Denies weakness Card Denies chest pain, Denies rapid heart rate, Denies irregular heart rhythm, Denies claudication, Denies leg edema, Denies lightheadedness, Denies palpitations, Denies dyspnea, Denies dyspnea on exertion, Denies orthopnea, Denies paroxysmal nocturnal dyspnea and Denies slow heart rate Resp Denies cough, Denies dyspnea, Denies dyspnea on exertion and Denies snoring GI Reports no additional complaints, Denies hematochezia, Denies change in stool character and Denies dyspepsia Musc Denies abnormal gait, Denies muscle weakness and Denies numbness Neuro Denies abnormal gait, Denies numbness and Denies weakness Endo Denies palpitations Physical Exam Vital Signs: Last Vital Signs Pulse 83 04/04/25 14:48 BP 140/64 H 04/04/25 14:48 BMI result Body Mass Index 25.5 Const General: cooperative, healthy appearing, no acute distress, alert and awake Nutritional Appearance: overweight Orientation/consciousness: patient oriented x3 Limitations: no limitations HEENT Head: Yes normal to inspection, Yes normocephalic and Yes atraumatic Eyes General: appearance normal, both eyes and all related structures Neck Neck: Yes normal visual inspection, Yes trachea midline, Yes supple and Yes no JVD Carotids: other ( No carotid bruit) Chest Chest palpation & inspection: normal inspection of the chest Resp Effort & Inspection: normal respiratory effort Auscultation: clear to auscultation bilaterally Cardio Jugular venous distension: no JVD Palpation: normal PMI Rate: regular rate Rhythm: regular rhythm Heart sounds: S1 normal heart sound present and S2 normal heart sound present Peripheral pulses: Peripheral pulses 2+ throughout GI Inspection: Yes normal to inspection Skin General skin exam: no rashes or lesions noted and no ecchymosis Neuro General: patient oriented x3 and no focal motor deficits Extrem General: Yes no clubbing, cyanosis or edema Psych Appearance: grossly normal Office Procedures EKG Details: EKG shows normal sinus rhythm with minimal voltage criteria for LVH otherwise normal EKGs 25954-[id number], Complete Assessment & Plan Assessment & Plan (1) CAD (coronary artery disease): Code(s): I25.10 - Atherosclerotic heart disease of [place] coronary artery without angina pectoris Category: Medical Qualifiers: Coronary Disease-Associated Artery/Lesion type: [place] artery [place] vs. transplanted heart: [place] heart Associated angina: without angina Qualified Code(s): I25.10 - Atherosclerotic heart disease of [place] coronary artery without angina pectoris Plan: Coronary artery disease multiple PCIs in the past with multiple risk factors. Importance of compliance with medication was discussed. He is recommended to be on low-dose aspirin therapy for life. Also recommend to better blood pressure control and should be back on lisinopril therapy for vascular protection as well as kidney protection given his underlying diabetes. Target goal blood pressure is close to systolic 120. Recommend to continue PCSK9 inhibitor therapy. Importance of target goal LDL less than 60 mg/dL was recommended. He is going to restart PCSK9 inhibitor therapy. Advise follow-up lipid panel in 3 months time. Continue aggressive diabetes management which she is being pursue through your office. Encouraged to continue maintain activity level as tolerated. Advised to call me with any new symptoms. (2) Thoracic aortic aneurysm: Code(s): I71.2 - Thoracic aortic aneurysm, without rupture Category: Medical Qualifiers: Presence of rupture: without rupture Qualified Code(s): I71.2 - Thoracic aortic aneurysm, without rupture Plan: Thoracic aortic aneurysm related to bicuspid aortic valve with moderate enlargement. Will continue monitor by echocardiogram in his month's time. Importance of avoiding sudden isometric physical exercise was discussed. Once reaches a threshold for 5 cm will consider repair with surgical means. This was discussed with him. More important control of blood pressure was discussed. Advised to seek emergency care for sudden-onset severe acute chest pain. Follow up in the clinic otherwise in 1 year's time, sooner PRN. Thank you for allowing me to partake in his care Orders: Orders CA echo transthoracic complete 1 Month Juan Yen MD I71.2 - Thoracic aortic a neurysm, without rupture Medications: Changed From lisinopril 10 mg PO DAILY 90 tabs 1RF To lisinopril 10 mg PO DAILY PRN James Scott MD Coding Level of Care Code Est Pt Level 4 (63247) Complex EM visit Add On G2211 Diagnoses Coronary artery disease involving nez perce coronary artery of [place] heart without angina pectoris I25.10 Coronary Disease-Associated Artery/Lesion type: [place] artery [place] vs. transplanted heart: [place] heart Associated angina: without angina Thoracic aortic aneurysm without rupture I71.2 Presence of rupture: without rupture CPT Codes EKG - CPT: 56263-[id number], Complete ([id number])
[2025-04-04 14:48] VITALS: BP 140/64; PULSE 83; BMI 25.5
== END 2025-04-04 15:28 | disposition home or self-care (01) ==
LOC: HO.HCS 14:39
PROVIDERS: PCP Internal Medicine; Visit Provider Internal Medicine Cardiovascular Disease
DX: I25.10 Atherosclerotic heart disease of native coronary artery without angina pectoris (principal); I71.20 Thoracic aortic aneurysm, without rupture, unspecified
CPT/HCPCS: 93010; 99214

== ENCOUNTER → 2025-04-04 14:38 | Outpatient (BNVA) | payer OTHER, SELFPAY | PROVIDERS: PCP Internal Medicine; Visit Provider Internal Medicine Cardiovascular Disease | DX: I25.10 Atherosclerotic heart disease of native coronary artery without angina pectoris (principal) | CPT/HCPCS: 93005 ==

== ENCOUNTER → 2025-05-10 14:23 | Outpatient (REF) | payer OTHER, SELFPAY ==
--- NOTE | 2025-05-10 14:27 | CA_ITS ---
Transthoracic Echocardiogram Patient (Last, First, Middle): David Joshi A Gender: Male Date of : 1965 Age: 59 Procedure Date: 05/10/2025 Procedure Type: Transthoracic Echocardiogram Location: OP Height: 170.18 cm Weight: 73.94 kg BSA: 1.85 m2 Heart Rate: bpm BP: 130 / 74 mmHg Trimming Inspector: TO Referring MD: Juan Yen MD Paper Colorer: Juan Yen MD Symptoms: I71.2 - Thoracic aortic aneurysm, without rupture Study Quality: Adequate ECG Rhythm: Sinus Conclusions: - 1. Normal LV ejection fraction 55-60% with impaired relaxation filling pattern 2. Bicuspid aortic valve without significant stenosis or regurgitation 3. Moderately dilated ascending aorta at 4.7 cm 4. Normal RV systolic pressure 5. No gross pericardial effusion Findings Left Ventricle Normal left ventricular size, thickness, and systolic function. The visually estimated ejection fraction is between 55-60%. Spectral Doppler is indicative of an impaired relaxation filling pattern. E/E prime ratio is between 8 and 15 consistent with indeterminate filling pressures. Right Ventricle Normal right ventricular cavity size and systolic function. Atria Both atria are normal in size. There is no evidence of interatrial shunt. Aortic Valve There is a bicuspid aortic valve. There is mild calcification of the aortic valve. There is moderate thickening of the aortic valve. There is no aortic valve stenosis. The peak aortic velocity is 1.48 m/s with a calculated peak gradient of 9 mmHg. The mean gradient is 5 mmHg. The aortic valve area is 2.29 cm2. There is no aortic valve regurgitation. Mitral Valve There is mild anterior and posterior mitral leaflet thickening. There is mild mitral annular calcification. There is trace mitral valve regurgitation. There is no mitral valve stenosis. Pulmonic Valve The pulmonic valve is likely normal. Tricuspid Valve Normal tricuspid valve structure. There is trace tricuspid valve regurgitation. The right ventricular systolic pressure is normal. The right ventricular systolic pressure is 17 mmHg. Normal right atrial pressure. There is no evidence of pulmonary hypertension. Great Vessels The pulmonary artery was not well visualized. There is moderate dilatation of the ascending aorta measuring 4.70 cm. Venous The inferior vena cava is normal in size and collapses greater than 50% with inspiration. Pericardium/Pleural There is no evidence of pericardial effusion. Prior Study Comparison No significant change compared to prior study dated: 05/20/2024. Measurements 2D Linear Measurements IVSd: 1.04 0.6-0.9/0.6-1.0 cm LVIDd: 4.16 3.9-5.3/4.2-5.9 cm LVIDd Index: 2.25 2.4-3.2/2.2-3.1 cm/m2 LVIDs: 2.74 2.0-3.6 cm LVPWd: 0.87 0.7-1.1 cm LA Diam: 2.90 2.7-3.8/3.0-4.0 cm LAIDs Index: 1.57 1.5-2.3 cm/m2 LV Mass: 157.84 67-162/88-224 g LV Mass Index: 85.32 43-95/49-115 g/m2 LVOT Diam: 2.10 3.0+(-)1.3 cm 2D Systolic Function EF 4C: 57.30 >55% EF 2C: 56.10 >55% EF BiP: 57.30 >55% Mitral Valve MV Pk E: 0.70 MV PK A: 1.05 MV Decel Time: 243.00 E/A: 0.70 E'Lateral: 7.07 E'Medial: 5.22 E/E' Med: 13.40 E/E' Lat: 9.90 PHT: 71.00 MVA PHT: 3.10 Decel [place]: 2.88 Aortic Valve AoV Pk Sanjay: 1.48 AoV Mn Sanjay: 1.05 AoV VTI: 0.31 AoV Pk Grad: 9.00 Aov Mn Grad: 5.00 [place]ES Cont.VTI: 2.29 LVOT LVOT Pk Sanjay: 0.94 LVOT Mn Sanjay: 0.67 LVOT VTI: 0.21 LVOT Pk Grad: 4.00 LVOT Mn Grad: 2.00 LVOT Diam: 2.10 LVOT Area: 3.46 Diastolic Function MV Pk E: 0.70 MV Pk A: 1.05 E/A: 0.70 E'Medial: 5.22 E/E' Med: 13.40 E' Laterial: 7.07 E/E' Lat: 9.90 Right Ventricle TAPSE (mm): 21.10 TVS' Sanjay: 10.20 Tricuspid Valve TR Pk Sanjay: 1.87 TR Pk Grad: 14.00 RA Press: 3.00 RVSP: 17.00 Great Vessels Aorta Sinus of Valsalva: 4.09 2.0-3.5 cm Ao Asc: 4.70 2.1-3.4 cm Ao Arch: 3.10 Updated in Other Vendor System with Status of Final Juan Yen MD electronically signed on 05/11/2025 11:00:52 AM with status of Final
== END ==
LOC: HO.CARD 14:23
PROVIDERS: PCP Internal Medicine; Visit Provider Internal Medicine Cardiovascular Disease
DX: I71.20 Thoracic aortic aneurysm, without rupture, unspecified (principal)
CPT/HCPCS: 93306

== ENCOUNTER → 2025-05-10 14:27 | Outpatient (BNV) | payer OTHER, SELFPAY | PROVIDERS: PCP Internal Medicine; Visit Provider Internal Medicine Cardiovascular Disease | DX: I77.810 Thoracic aortic ectasia (principal) | CPT/HCPCS: 93306 ==

== ENCOUNTER 2025-05-12 11:20 | Outpatient (AMB) | payer OTHER, SELFPAY ==
--- NOTE | 2025-05-12 11:39 | A.OFFPC_ITS ---
Vital Signs 05/12/25 11:48 Height 5 ft 7 in Weight 160 lb BMI 25.1 BP 128/72 Blood Pressure Location Lt brachial Position Sitting Respiration 18 Pulse 83 Pulse Source Pulse Oximeter Temp 98.3 F Temp Source Temporal Artery Scan Pulse Oximetry (%) 98 Oxygen Delivery Method Room Air Intake Visit Reasons: Follow Up Subpoena Server Required: No Accompanied by: Self / Same As Patient Allergies atorvastatin (Lipitor) Allergy (Unknown, Verified 05/12/25 12:10) joint px Medication List - Last Reconciled 05/12/25 by James Scott MD aspirin (Adult Low Dose Aspirin) 81 mg PO DAILY blood sugar diagnostic ([employer] Ultra Test strips) CHECK BLOOD GLUCOSE FOUR TIMES DAILY [blood sugar monitor As directed] blood-glucose sensor (Enterra Feedyle Brandon 3 Sensor device) As directed blood-glucose,surgical sales representative,cont (FreeStyle Brandon 3 Sunshine) As directed Humalog KwikPen Insulin (insulin lispro) 12 - 20 units (0.12 - 0.2 mL) subcut TID NS insulin glargine (Lantus U-100 Insulin) 18 units subcut BEDTIME lisinopril 10 mg PO DAILY PRN pen needle, diabetic (BD Ultra-Fine Original Pen Needle) 1 ea miscellaneous TID pen needle, diabetic use to inject insulin 3 x daily Tobacco use date assessed: 12/16/24 Dental Screening Dental Screen Date: 12/16/24 HPI Follow Up HPI Details Patient comes in today for his follow-up visit States that he feels okay He denies any headaches or dizziness Denies any chest pains, no shortness of breath No nausea/vomiting, no abdominal pain No change in bowel habits noted Adds that he has been experiencing on and off pain in his right hip for a few weeks now - feels that his hip is in danger of 'popping out' at times He denies any recent injury or trauma to his right hip He was also seen by ophthalmology for his eye exam back in December 2024 and states that he underwent some laser treatment to 'open up his angles' and they have also recommended some injections, which he has not yet decided to go for as he has some hesitations about his procedure and concerns about the injection(s) He has no follow-up labs done recently but states that he did get his labs done a few days after his last visit in November 2024 [facility] Medical History Diabetic retinopathy associated with diabetes mellitus due to underlying condition Essential hypertension Pure hypercholesterolemia Normal colonoscopy (~10/12/15) Blurred vision, bilateral CAD (coronary artery disease) Thoracic aortic aneurysm Bicuspid aortic valve Diabetes mellitus Surgical History History of dental surgery Stented coronary artery Hx of cardiac cath (~2012) Family History Father Hypertension Mother Hypertension Diabetes Social History Housing: House Alcohol intake: current Alcohol intake frequency: holidays/special occasions only Patient Tobacco Use Status: Never used Tobacco e-Cigarette/Vaping Use: Never Used Second Hand Smoke Exposure: Yes service: No Current occupational status: employed Current occupational exposures/hazards: No Cognitive needs: No Hearing needs: No Vision needs: No Questionnaire PHQ-9 Over the last 2 weeks, how often have you been bothered by any of the following problems? Depression Screening Interpretation: Negative Depression Screening Done: Yes Source: Developed by Drs. Beau Mccarthy, Molly Lang, Julio Marquis and colleagues, with an educational nikki from [employer]. Thrive Questionnaire Date Thrive assessed: 12/16/24 I am a: Patient What is your living situation today?: I have a steady place to live Within the past 12 months, did the food you bought not last and you didn't have the money to get more?: Never true Within the past 12 months, did you worry whether your food would run out before you got money to buy more?: Never true Do you have trouble paying for medicines?: No Do you have trouble getting transportation to medical appointments?: No Do you have trouble paying your heating and electricity bill?: No Do you have trouble taking care of your child, family member or friend?: No Do you have trouble with day-to-day activities such as bathing, preparing meals, shopping, managing finances, etc.?: No Are you currently unemployed and looking for a job?: No Are you interested in more education?: Yes Please select the resources that you would like help with: None Currently or been in a relationship where the following occur: No concerns reported THRIVE Score: 0 MILDRED-7 AMB Questionnaire MILDRED-7 Date MILDRED - 7 assessed: 12/16/24 Source: Developed by Drs. Beau Mccarthy, Molly Lang, Julio Marquis and colleagues, with an educational nikki from [employer]. Review of Systems Const Denies chills, Denies fatigue, Denies fever(s) and Denies headache(s) ENT Denies dysphagia, Denies dizziness, Denies otalgia, Denies headache(s), Denies neck pain, Denies odynophagia and Denies sore throat Card Denies chest pain, Denies rapid heart rate, Denies irregular heart rhythm, Denies palpitations and Denies dyspnea Resp Denies chest congestion, Denies cough and Denies dyspnea GI Denies abdominal pain, Denies constipation, Denies dysphagia, Denies heartburn, Denies diarrhea, Denies nausea, Denies odynophagia and Denies vomiting Denies difficulty urinating, Denies dysuria, Denies nocturia and Denies urinary frequency Musc Denies back pain, Reports arthralgias (on and off in the right hip) and Denies neck pain Skin/Breast Denies rash Neuro Denies dizziness, Denies headache(s) and Denies paresthesias Endo Denies fatigue and Denies palpitations Physical exam (Primary Care) Vital Signs: Last Vital Signs Temp 98.3 F 05/12/25 11:48 Pulse 83 05/12/25 11:48 Resp 18 05/12/25 11:48 BP 128/72 05/12/25 11:48 Pulse Ox 98 05/12/25 11:48 Oxygen Delivery Method Room Air 05/12/25 11:48 BMI result Body Mass Index 25.1 Tobacco/Smoking Status: Tobacco use Status Tobacco use date assessed 12/16/24 05/12/25 11:39 Patient Tobacco Use Status Never used Tobacco 05/12/25 11:39 e-Cigarette/Vaping Use Never Used 05/12/25 11:39 Depression Screening Interpretation: Negative Thrive Assessment: Date of Thrive Assessment Date Thrive assessed 12/16/24 05/12/25 11:39 Currently or been in a relationship where the following occur: No concerns reported Const General: no acute distress and alert HENMT Ears: TM's normal bilaterally and EAC's normal Throat: Yes posterior oropharynx normal and Yes tonsils normal (no TP congestion) Neck Neck: Yes supple and No lymphadenopathy Thyroid: Thyroid normal Resp Auscultation: clear to auscultation bilaterally, no rales and no wheezes Cardio Rate: regular rate Rhythm: regular rhythm Heart sounds: no murmurs GI Palpation (GI): Soft to palpation and nontender Auscultation: normal bowel sounds General: Yes no CVA tenderness Back/Spine/Pelvis Back: no CVA tenderness Thoracic/Lumbar Spine: No lumbar spinal tenderness Skin Rashes: no rashes Extrem General: Yes no clubbing, cyanosis or edema Right lower extremity: hip/thigh Details: tenderness Location: of the hip Results AMB Hemoglobin A1c AMB Hemoglobin A1c 8.5 % Last Edit by ANTONIO Villa on 05/12/25 12:10 Results Reviewed Results Reviewed: Laboratory Last Values Hgb A1c (Clinic) 8.5 % (4.0-6.0) H 05/12/25 11:38 Laboratory Tests 12/21/24 12/21/24 05/12/25 07:39 07:44 11:38 WBC 7.0 Hgb 15.4 Hct 45.1 Plt Count 234 Sodium 137 Potassium 4.6 Creatinine 1.28 Estimated GFR 57 Fasting Glucose 230 H Hgb A1c (Clinic) 8.5 H Hemoglobin A1c % 8.9 H Calcium 8.7 D AST 38 H ALT 41 H Triglycerides 141 Cholesterol 234 H LDL Cholesterol, Calc 155 H HDL Cholesterol 51 Prostate Specific Ag 0.35 Vitamin B12 1882 H 25-OH Vitamin D Total 49.9 TSH 3.88 Ur Specific [place] 1.020 Urine Protein Negative Urine Glucose (UA) Negative Urine Blood Negative Urine Nitrite Negative Ur Leukocyte Esterase Negative Microalb/Creat Ratio 5.6 Coding Level of Care Code Est Pt Level 4 (72826) Add On Problem Visit Only Diagnoses Type 2 diabetes mellitus with hyperglycemia, with long-term current use of insulin E11.65; Z79.4 Diabetes mellitus complication status: with hyperglycemia Diabetes mellitus superintendent container terminal insulin use: with chcf use Diabetes mellitus type: type 2 Pure hypercholesterolemia E78.00 Coronary artery disease involving [place] coronary artery of [place] heart without angina pectoris I25.10 Associated angina: without angina Coronary Disease-Associated Artery/Lesion type: [place] artery [place] vs. 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, macular edema presence unspecified E08.3293 Diabetic retinopathy severity: with mild nonproliferative retinopathy Diabetes mellitus macular edema: macular edema presence unspecified Laterality: bilateral Right hip pain M25.551 Assessment & Plan Assessment & Plan (1) Diabetes mellitus: Code(s): E11.9 - Type 2 diabetes mellitus without complications Category: Medical Qualifiers: Diabetes mellitus complication status: with hyperglycemia Diabetes mellitus chcf insulin use: with superintendent container terminal use Diabetes mellitus type: type 2 Qualified Code(s): E11.65 - Type 2 diabetes mellitus with hyperglycemia; Z79.4 - terminal carman (current) use of insulin Plan: His in-office HgbA1c today is at 8.5% (was previously at 9.2% a few months ago although his HgbA1c on his labs done a few days later on 12/21/2024 came out at 8.9%) - goal is at least <7.0% Reinforced diabetic diet Have cautioned patient again that his diabetes has not been optimally controlled for years now and this will increase his risks for diabetic complications down the road if he does not get his diabetes under better control ANABELLA Continue Lantus 18 units at bedtime (he was previously on 27 units QD) and Humalog 12-20 units TID with meals per sliding scale Have again offered to refer him to endocrinology but he continues to decline and states that he knows what he needs to do (2) Pure hypercholesterolemia: Code(s): E78.00 - Pure hypercholesterolemia, unspecified Category: Medical Plan: Results of his labs done back in November 2024 reviewed and discussed with patient Reinforced low-cholesterol diet His fasting lipid profile last done in November 2024 were still elevated (total chol esterol at 234 mg/dl and LDL cholesterol at 155 mg/dl) but these have improved significantly from his previous numbers in April 2024 wherein his total cholesterol then was at 339 mg/dL and LDL cholesterol at 224 mg/dL He has a history of statin intolerance (joint pains) so he was started on Repatha 140 mg SQ every 2 weeks by Cardiology when he was last seen by Dr. Yen last March 2024 but patient admits to poor compliance with his injections lately as he has not been consistently taking his injections - he is also currently out of his Rx and will need this refilled (Rx sent and patient is instructed to start back on this every 2 weeks regularly) He is again advised that with his diabetes and CAD, his LDL cholesterol goal should be <70 mg/dl Will have him recheck his labs and fasting lipids in 4 months for follow up (3) CAD (coronary artery disease): Code(s): I25.10 - Atherosclerotic heart disease of [place] coronary artery without angina pectoris Category: Medical Qualifiers: Associated angina: without angina Coronary Disease-Associated Artery/Lesion type: [place] artery [place] vs. transplanted heart: [place] heart Qualified Code(s): I25.10 - Atherosclerotic heart disease of [place] coronary artery without angina pectoris Plan: (+) Hx of CAD with premature atherosclerosis, S/P drug-eluting stent to the proximal RCA back in May 2012 Patient currently reports no acute cardiac symptoms Continue Aspirin 81 mg QD - he needs to stay on low dose Aspirin Tx for life He has been cautioned again on the importance of risk factor reduction, considering his CAD history, including optimizing his diabetes control, which he continues to struggle with Follow-up with cardiology as scheduled - he currently sees Cardiology once a year (4) Essential hypertension: Code(s): I10 - Essential (primary) hypertension Category: Medical Plan: Reinforced low sodium diet - goal is systolic BP of 120 mm or less Continue Lisinopril 10 mg QD (5) Thoracic aortic aneurysm: Code(s): I71.2 - Thoracic aortic aneurysm, without rupture Category: Medical Qualifiers: Presence of rupture: without rupture Qualified Code(s): I71.2 - Thoracic aortic aneurysm, without rupture Plan: His last echocardiogram done a couple of days ago on 05/10/2025 revealed (+) normal LV ejection fraction 55-60% with impaired relaxation filling pattern, a bicuspid aortic valve without significant stenosis or regurgitation, a moderately dilated ascending aorta at 4.7 cm, normal RV systolic pressure and no gross pericardial effusion Have advised patient that his current echo findings have progressed slightly from a year ago, wherein his EF was at 60-65% and the ascending aorta diameter was at 4.6 cm Have advised patient again that vascular intervention will be indicated when his aneurysm reaches a size of 5 cm He will continue to have yearly echocardiogram to help monitor this closely (6) Diabetic retinopathy associated with diabetes mellitus due to underlying condition: Code(s): E08.319 - Diabetes mellitus due to underlying condition with unspecified diabetic retinopathy without macular edema Category: Medical Qualifiers: Diabetic retinopathy severity: with mild nonproliferative retinopathy Diabetes mellitus macular edema: macular edema presence unspecified Laterality: bilateral Qualified Code(s): E08.3293 - Diabetes mellitus due to underlying condition with mild nonproliferative diabetic retinopathy without macular edema, bilateral Plan: Patient was advised reportedly at his ophthalmology visit back in December 2024 that he has mild nonproliferative diabetic retinopathy in both eyes as well as some vitreomacular adhesion with traction that is slightly more prominent in the right eye He also has bilateral anatomic narrow angles that can potentially occlude, leading to increased pressure and glaucoma in he reportedly underwent laser peripheral iridotomy subsequently for preventive Tx He was also recommended to go for anti-VEGF injections for his diabetic retinopathy but he remains hesitant about the injections and has not yet scheduled an appointment to get this done - he is advised that he needs to get his diabetic retinopathy treated and stabilized or he risks permanent blindness if this progresses Follow up with ophthalmology as scheduled (7) Right hip pain: Code(s): M25.551 - Pain in right hip Category: Medical Plan: Will send patient for x-rays of the right hip ANABELLA for further evaluation Plan Follow-up in 4 months Orders: Orders Comprehensive [place]. Panel Fast 4 Months E78.00 - Pure hypercholesterolemia, unspecified Hemoglobin A1c 4 Months E11.9 - Type 2 diabetes mellitus without complications Microalbumin, Random (w Creat) 4 Months E11.9 - Type 2 diabetes mellitus without complications Vitamin D 25-OH Total 4 Months E55.9 - Vitamin D deficiency, unspecified AMB Hemoglobin A1c 05/12/25 E11.65 - Type 2 diabetes mellitus with hyperglycemia, Z79.4 - terminal carman (current) use of insulin XR hip RT min 2V 05/12/ M25.551 - Pain in right hip Complete Blood Count Auto Diff 4 Months D64.9 - Anemia, unspecified Lipid Panel 4 Months E78.00 - Pure hypercholesterolemia, unspecified TSH reflex Free T4 4 Months E78.00 - Pure hypercholesterolemia, unspecified UA CC w/rflx Micro + Cult 4 Months R30.0 - Dysuria C Peptide 4 Months E11.9 - Type 2 diabetes mellitus without complications Glutamic acid decarboxylase Ab 4 Months E11.9 - Type 2 diabetes mellitus without complications Medications: Changed From insulin glargine (Lantus U-100 Insulin) 27 units (0.27 mL) subcut BEDTIME 30 days 10 mL 5RF E11.9 - Type 2 diabetes mellitus without complications To insulin glargine (Lantus U-100 Insulin) 18 units subcut BEDTIME E11.9 - Type 2 diabetes mellitus without complications Refilled evolocumab (Elieser Lovell) 140 mg subcut Q2W 2 mL 5RF
[2025-05-12 11:48] VITALS: BP 128/72; PULSE 83; RESP 18; TEMP 36.8; O2SAT 98; BMI 25.1
== END 2025-05-12 12:30 | disposition home or self-care (01) ==
LOC: HO.HMCH 11:21
PROVIDERS: PCP Internal Medicine; Visit Provider Internal Medicine
DX: E11.65 Type 2 diabetes mellitus with hyperglycemia (principal); Z79.4 Long term (current) use of insulin

== ENCOUNTER → 2025-05-12 11:20 | Outpatient (BNVA) | payer OTHER, SELFPAY | PROVIDERS: PCP Internal Medicine; Visit Provider Internal Medicine | DX: E11.65 Type 2 diabetes mellitus with hyperglycemia (principal); E11.3293 Type 2 diabetes mellitus with mild nonproliferative diabetic retinopathy without macular edema, bilateral; M25.551 Pain in right hip; E78.00 Pure hypercholesterolemia, unspecified; I25.10 Atherosclerotic heart disease of native coronary artery without angina pectoris; I10 Essential (primary) hypertension; I71.20 Thoracic aortic aneurysm, without rupture, unspecified; M25.511 Pain in right shoulder; Z79.4 Long term (current) use of insulin | CPT/HCPCS: 83036 ==